=== PATIENT | male | born 1945 ===

== ENCOUNTER 2016-07-13 16:27 | Emergency (ER) | payer MEDICARE, OTHER ==
[2016-07-13 17:24] VITALS: BMI 18.6
[2016-07-13] MEDS ORDERED: Sodium Chloride 0.9% 1,000 ML IV ONE (19:35)
[2016-07-13] MEDS ORDERED: Sodium Chloride 0.9% 1,000 ML ONE (20:13)
--- NOTE | 2016-07-13 20:22 | C.PDOC ---
History Of Present Illness 71 y/o male presents to ED with complaint of left flank pain for the last week. Patient reports current pain feels like prior kidney stones 20 years ago. Denies fever, chills, nausea, vomiting, or urinary symptoms. Time Seen by Provider: 07/13/16 19:20 Chief Complaint (Nursing): Male Genitourinary History Per: Patient History/Exam Limitations: no limitations Onset/Duration Of Symptoms: Days Current Symptoms Are (Timing): Still Present Quality Of Discomfort: "Pain" Associated Symptoms: denies: Fever, Chills, Nausea, Vomiting, Diarrhea, Urinary Symptoms Recent travel outside of the [place]: No Past Medical History Reviewed: Historical Data, Nursing Documentation, Vital Signs Vital Signs: Last Vital Signs Temp 97.6 F 07/13/16 21:16 Pulse 58 L 07/13/16 21:16 Resp 18 07/13/16 21:16 BP 168/84 H 07/13/16 21:16 Pulse Ox 97 07/13/16 22:38 - Medical History PMH: HTN, Kidney Stones, Chronic Kidney Disease Family History: States: Unknown Family Hx - Social History Hx Alcohol Use: No Hx Substance Use: No - Immunization History Hx Tetanus Toxoid Vaccination: No Hx Influenza Vaccination: No Hx Pneumococcal Vaccination: No Review Of Systems Except As Marked, All Systems Reviewed And Found Negative. Constitutional: Negative for: Fever, Chills Cardiovascular: Negative for: Chest Pain Respiratory: Negative for: Cough Gastrointestinal: Positive for: Other (left flank pain ). Negative for: Nausea , Vomiting, Diarrhea Genitourinary: Negative for: Dysuria, Hematuria Skin: Negative for: Rash Neurological: Negative for: Dizziness Physical Exam - Physical Exam Appears: Non-toxic, No Acute Distress Skin: Warm, Dry Head: Atraumatic, Normacephalic Oral Mucosa: Moist Chest: Symmetrical Cardiovascular: Rhythm Regular, No Murmur Respiratory: Normal Breath Sounds, No Rales, No Rhonchi, No Wheezing Gastrointestinal/Abdominal: Soft, No Tenderness, No Guarding, No Rebound Back: Normal Inspection, No CVA Tenderness Extremity: Normal ROM, Capillary Refill (< 2 sec. ) Neurological/Psych: Oriented x3, Normal Speech, Normal Cognition ED Course And Treatment - Laboratory Results Result Diagrams: 07/13/16 20:25 07/13/16 20:25 Lab Interpretation: Abnormal (UA 10 WBC's, 37 RBC's) ECG: Interpreted By Me ECG Rhythm: Sinus Rhythm ECG Interpretation: Normal Rate From EC O2 Sat by Pulse Oximetry: 97 (RA) Pulse Ox Interpretation: Normal - Radiology CXR: Interpreted by Me CXR Interpretation: Yes: No Acute Disease - CT Scan/US CT abdomen/pelvis Other Rad Studies (CT/US): Read By Radiologist, Radiology Report Reviewed CT/US Interpretation: IMPRESSION: - Mild bladder wall thickening. This is a nonspecific finding, but can be seen with cystitis. Recommend clinical correlation. - Otherwise, no evidence of significant acute process on this unenhanced exam. There is no evidence. of obstructive nephroureterolithiasis. - Incidental indeterminate 1.4 cm left pulmonary nodule and multiple indeterminate hyperdense left. renal lesions. Further workup is recommended. Progress Note: Treated with Toradol and IVFs. EKG, CxR, CT a/p, and bloodwork ordered. Reevaluation Time: 22:58 Reassessment Condition: Improved Medical Decision Making Medical Decision Making: no ureteral stones ? L lower thorax small mass- requires further eval. L renal masses- multiple f/u with PMD and Nephrology Disposition Doctor Will See Patient In The: Office Counseled Patient/Family Regarding: Studies Performed, Diagnosis - Disposition Disposition: HOME/ ROUTINE Disposition Time: 22:59 Condition: GOOD - Clinical Impression Clinical Impression: Flank pain, Renal mass, left, Lung nodule - Scribe Statement The provider has reviewed the documentation as recorded by the Ted Timmons Provider Scribe Attestation: All medical record entries made by the Ted were at my direction and personally dictated by me. I have reviewed the chart and agree that the record accurately reflects my personal performance of the history, physical exam, medical decision making, and the department course for this patient. I have also personally directed, reviewed, and agree with the discharge instructions and disposition.
[2016-07-13 20:33] LABS: BASO % 0.9 % (0.0-2.0); EOS # 0.3 K/uL (0.0-0.7); EOS % 5.6 % (0.0-4.0); HEMATOCRIT 41.8 % (35.0-51.0); LYMPH # 1.2 K/uL (1.0-4.3); LYMPH % 20.9 % (20.0-40.0); MEAN CELL VOLUME 100.9 fL (80.0-94.0); MEAN CORPUSCULAR HEMOGLOBIN 33.7 pg (27.0-31.0); MEAN CORPUSCULAR HGB CONC 33.4 g/dL (33.0-37.0); MONO # 0.5 K/uL (0.0-0.8); MONO % 8.9 % (0.0-10.0); NRBC % 0.1 % (0.0-2.0); RED CELL DISTRIBUTION WIDTH 13.2 % (11.5-14.5); WHITE BLOOD COUNT 5.6 K/uL (4.8-10.8)
[2016-07-13 20:37] LABS: CHLORIDE 96 mmol/L (98-107); SODIUM 134 mmol/L (132-148)
[2016-07-13 20:38] LABS: POTASSIUM 4.1 mmol/L (3.6-5.2)
[2016-07-13 20:40] LABS: ALB/GLOB RATIO 1.2 (1.0-2.1); ALKALINE PHOSPHATASE 67 U/L (38-126); ALT/SGPT 28 U/L (21-72); AST/SGOT 33 U/L (17-59); BILIRUBIN,TOTAL 0.9 mg/dL (0.2-1.3); BLOOD UREA NITROGEN 19 mg/dL (9-20); CARBON DIOXIDE 28 mmol/L (22-30); GFR AFRICAN-AMERICAN > 60; GLUCOSE,RANDOM 91 mg/dL (75-110); TOTAL PROTEIN 7.4 g/dL (6.3-8.3)
[2016-07-13 20:45] LABS: RBC URINE 37 /hpf (0-3); URINE BACTERIA RARE (<OCC); URINE BILIRUBIN NEGATIVE (NEGATIVE); URINE BLOOD 2+ (NEGATIVE); URINE COLOR Yellow (YELLOW); URINE GLUCOSE (UA) NORMAL (Normal); URINE KETONE TRACE mg/dL (NEGATIVE); URINE LEUKOCYTE ESTERASE TRACE Leu/uL (Negative); URINE PROTEIN NEGATIVE (NEGATIVE); URINE UROBILINOGEN NORMAL mg/dL (0.2-1.0); WBC URINE 10 /hpf (0-5)
[2016-07-13 20:46] LABS: INR 1.1
[2016-07-13 21:17] VITALS: TEMP 97.6
--- NOTE | 2016-07-13 22:35 | CT ---
EXAM: CT Abdomen and Pelvis Without Intravenous Contrast CLINICAL HISTORY: 71 years old, male; Pain; Abdominal pain; Localized; Left; Additional info: L flank, h/o renal colic TECHNIQUE: Axial computed tomography images of the abdomen and pelvis without intravenous contrast. This CT exam was performed using one or more of the following dose reduction techniques: automated exposure control, adjustment of the mA and/or kV according to patient size, and/or use of iterative reconstruction technique. Coronal and sagittal reformatted images were created and reviewed. EXAM DATE/TIME: 07/13/2016 7:34 PM COMPARISON: No relevant prior studies available. FINDINGS: LOWER THORAX: Incidentally noted in the left lung base is a 1.4 cm noncalcified nodule, with mildly irregular margins. This is indeterminate in nature. There is no evidence of diffuse pulmonary nodules. ABDOMEN: LIVER: No acute abnormality of the liver identified. GALLBLADDER AND BILE DUCTS: No CT evidence of acute cholecystitis. No evidence of significant biliary ductal dilatation. PANCREAS: No CT evidence of acute pancreatitis. SPLEEN: No acute abnormality of the spleen identified. ADRENALS: No acute abnormality of the adrenal glands identified. KIDNEYS AND URETERS: Multiple hyperdense lesions in the left kidney. At least 4 are seen, the largest of which measures 3.2 cm. These could represent hyperdense cysts, but cannot entirely rule out solid left renal lesions. Recommend further evaluation with renal ultrasound or renal protocol CT or MRI, not necessarily on an emergent basis. Low density probable cyst in the right kidney. Nonobstructing right renal stone. No evidence of hydroureteronephrosis. No evidence of perinephric hemorrhage. STOMACH AND BOWEL: No acute abnormality of the stomach or duodenum identified. No evidence of small bowel obstruction. No acute abnormality of the colon identified. APPENDIX: Appendix is seen, and is within normal limits in appearance. PELVIS: BLADDER: Mild thickening of the bladder wall. REPRODUCTIVE: No acute abnormality of the reproductive organs is seen. ABDOMEN and PELVIS: INTRAPERITONEAL SPACE: No evidence of free intraperitoneal air or fluid. BONES/JOINTS: Bony structures appear demineralized. No acute fractures or other acute bony abnormality noted. SOFT TISSUES: No acute abnormality of the visualized soft tissues is seen. VASCULATURE: No evidence of abdominal aortic aneurysm. No evidence of periaortic hemorrhage. LYMPH NODES: No evidence of diffuse lymphadenopathy. IMPRESSION: - Mild bladder wall thickening. This is a nonspecific finding, but can be seen with cystitis. Recommend clinical correlation. - Otherwise, no evidence of significant acute process on this unenhanced exam. There is no evidence of obstructive nephroureterolithiasis. - Incidental indeterminate 1.4 cm left pulmonary nodule and multiple indeterminate hyperdense left renal lesions. Further workup is recommended. - See above for remaining findings.
[2016-07-13 23:23] VITALS: BP 168/95; PULSE 72; RESP 20; O2SAT 99
--- NOTE | 2016-07-14 08:44 | RAD ---
PROCEDURE: CHEST RADIOGRAPH, 1 VIEW HISTORY: Abdominal pain COMPARISON: None available. FINDINGS: LUNGS: Biapical pleural thickening with upper lobe granulomatous changes. Diffuse increased interstitial lung markings which may represent underlying fibrotic changes versus interstitial infiltrate and or edema. More patchy consolidative increased markings at the left lung base which may represent infiltrate and or atelectasis. Additional milder patchy increased markings in the right hilar region extending to the medial right infrahilar region. Scattered nodular densities in both lungs. PLEURA: No pneumothorax or pleural fluid seen. CARDIOVASCULAR: Normal. OSSEOUS STRUCTURES: No significant abnormalities. VISUALIZED UPPER ABDOMEN: Normal. OTHER FINDINGS: None. IMPRESSION: Biapical pleural thickening with upper lobe granulomatous changes. Diffuse increased interstitial lung markings which may represent underlying fibrotic changes versus interstitial infiltrate and or edema. More patchy consolidative increased markings at the left lung base which may represent infiltrate and or atelectasis. Additional milder patchy increased markings in the right hilar region extending to the medial right infrahilar region. Scattered nodular densities in both lungs.
--- NOTE | 2016-07-14 10:22 | CARD ---
APPROVED REPORT EKG Measurement Heart [id number] <Conclusion> Sinus rhythm with premature atrial complexes Possible Left atrial enlargement Borderline ECG
== END 2016-07-13 23:23 | disposition home or self-care (01) ==
LOC: C.ER 16:27
DX: N28.89 Other specified disorders of kidney and ureter (principal); R91.1 Solitary pulmonary nodule; R10.9 Unspecified abdominal pain
CPT/HCPCS: 71010; 74176; 80053; 81001; 83690; 84484; 85025; 85610; 85730; 93005; 96361; 96374; 99284; J1885; J7040

== ENCOUNTER 2017-01-16 10:36 | Inpatient (IN) | payer MEDICARE, OTHER ==
[2017-01-16 10:41] VITALS: BMI 21.2
--- NOTE | 2017-01-16 10:47 | C.PDOC ---
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 PATIENT STATES HE AWOKE AT BASELINE, A&OX3, FUNCTIONAL AND SELF SUFFICIENT. PATIENT FOUND IN BED TO HAVE LEFT LATERAL GAZE. NOT COMMUNICATIVE, NO MOVEMENT. PT HAS A HX OF METASTATIC CA. PER EMS, NEW ONSET SUDDEN AMS X 1 HR. FROM NH, NOTED TO BE @ BASELINE Time Seen by Provider: 01/16/17 10:39 History Per: EMS History/Exam Limitations: clinical condition Past Medical History Reviewed: Historical Data, Nursing Documentation, Vital Signs Vital Signs: Last Vital Signs Temp 97.1 F L 01/17/17 23:50 Pulse 86 01/18/17 06:28 Resp 20 01/18/17 06:28 BP 126/63 01/18/17 06:28 Pulse Ox 100 01/18/17 06:28 - Medical History PMH: HTN, Kidney Stones, Chronic Kidney Disease Family History: States: No Known Family Hx - Social History Hx Alcohol Use: No Hx Substance Use: No - Immunization History Hx Tetanus Toxoid Vaccination: No Hx Influenza Vaccination: No Hx Pneumococcal Vaccination: No Review Of Systems Review Of Systems: ROS cannot be obtained secondary to pt's inabilty to answer questions. Physical Exam - Physical Exam Appears: Other (OPENS EYES TO NAME, POOR PAIN RESPONSE; NON-VERBAL. SEE NIH) Skin: Warm, Dry Head: Atraumatic Eye(s): bilateral: Normal Inspection Nose: Normal Oral Mucosa: Moist Chest: Symmetrical Cardiovascular: Rhythm Regular Respiratory: Normal Breath Sounds Gastrointestinal/Abdominal: Soft Extremity: No Deformity Extremity: Bilateral: Atraumatic Neurological/Psych: No Normal Speech, Other ((+) BABINSKIS B/L; +GAG REFLEX) Pain Response: Withdraws With Pain ED Course And Treatment - Laboratory Results Result Diagrams: 01/17/17 16:50 01/18/17 06:57 NIHSS Stroke Scale - Date/Time Evaluation Performed Date Performed: 01/16/17 Time Performed: 10:44 When Was NIHSS Performed: Code Stroke - How Severe is the Stroke Level of Consciousness: 2=Obtunded LOC to Questions: 2=Neither correct (UNABLE TO ASSESS NONCOMMUNICATIVE) LOC to commands: 2=Neither correct (UNABLE TO ASSESS NONCOMMUNICATIVE) Best Gaze: 2=Forced deviation Visual: 0=No visual loss (UNABLE TO ASSESS NONCOMMUNICATIVE) Facial: 2=Partial (lower face paralysis) Motor Arm - Left: 4=No movement Motor Arm - Right: 4=No movement Motor Leg - Left: 4=No movement Motor Leg - Right: 4=No movement Limb Ataxia: 2=Present both (UNABLE TO ASSESS NONCOMMUNICATIVE) Sensory: 0=Normal (UNABLE TO ASSESS NONCOMMUNICATIVE) Best Language: 3=Mute Dysarthia: 2=Severe, near unintelligible or worse Extinction & Inattention (Neglect): 0=Normal, no object (UNABLE TO ASSESS NONCOMMUNICATIVE) Score: 33 NIHSS Stroke Scale 2 - Date/Time Evaluation Performed Date Performed: 01/16/17 Time Performed: 10:44 When Was NIHSS Performed: Code Stroke Re-evaluation - How Severe is the Stroke Level of Consciousness: 2=Obtunded LOC to Questions: 2=Neither correct (UNABLE TO ASSESS NONCOMMUNICATIVE) LOC to commands: 2=Neither correct (UNABLE TO ASSESS NONCOMMUNICATIVE) Best Gaze: 2=Forced deviation Visual: 0=No visual loss (UNABLE TO ASSESS NONCOMMUNICATIVE) Facial: 2=Partial (lower face paralysis) Motor Arm - Left: 4=No movement Motor Arm - Right: 4=No movement Motor Leg - Left: 4=No movement Motor Leg - Right: 4=No movement Limb Ataxia: 2=Present both (UNABLE TO ASSESS NONCOMMUNICATIVE) Sensory: 0=Normal (UNABLE TO ASSESS NONCOMMUNICATIVE) Best Language: 3=Mute Dysarthia: 2=Severe, near unintelligible or worse Extinction & Inattention (Neglect): 0=Normal, no object (UNABLE TO ASSESS NONCOMMUNICATIVE) Score: 33 Progress - Re-Evaluation Re-evaluation Note: 01/16/17 10:58 D/W REYES THOMAS DAUGHTER, 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 HO STROKE 08/2016. SP L NEPHRECTOMY 09/2016 @ [facility] [place] MASS = BENIGN. NEW PAIN R SIDE ,DX NEW MASS IN BONE. +LYMPH METS. SP RADIATION TX BUT DC DUE TO P.E. CURRENTLY ON CHEMO Q 3 WEEKS STARTED ON 01/07. PT ON ANTICOAG. 01/16/17 11:05 D/W DR JARRELL +L MCA 01/16/17 11:10 D/W DR QUINONEZ AWARE OF ER FINDINGS. CONCERN FOR POSSIBLE BRAIN METS. NO CT EVIDENCE OF BRAIN METS. STATES PT IS NOT A TPA CANDIDATE D/W DR Ellyn SEBASTIAN @ [facility] AWARE OF ER FINDINGS. PT NOT AN ENDOVASC CANDIDATE. SUPPORTIVE MGMT. 01/16/17 11:52 EXAM UNCH FROM INITIAL. DAUGHTER @ BEDSIDE. PMD = DR SY, HEME ONC @ [facility] [place] 01/16/17 12:[address] ZARATE WILL ADMIT - Data Reviewed Data Reviewed: Lab, Diagnostic imaging, EKG, Old records - Critical Care Citical Care: Excluding Proc Time Critical Care Time: 105 minutes - Continuity of Care Discussed patient case with:: Family-HIPPA compliant, Covering for PMD rTPA Inclusion/Exclusion - Refusal of Treatment Patient Refused Treatment: No - Inclusion Criteria for Altepase Patient is 18 years or Older: Yes The Clinical Diagnosis of Ischemic Stroke That is Causing a Potentially Disabling Neurological Deficit: Yes Time of Onset is Well Established to be Less Than 270 Minute Before Treatment Would Begin: Yes Risk/Benefit Discussed With Patient/Family Member Present: No - Exclusion Criteria for Altepase Uncontrolled Hypertension at Time of Treatment (Systolic BP above 185 or Diastolic BP above 110 mmHg): No Active Internal Bleeding: No Known Bleeding Diathesis Including but Not Limited to: Platelets Below 100,000/ mm,PTT Above 40 sec After Heparin Use, Current Use of Oral Anitcoagulant With INR Greater Than 1.7 or PT Greater Than 15 secs: No Evidence of an Intracranial Hemorrhage: No Evidence of Major Acute Infarct With Signs Greater Than 1/3 MCA Territory: Yes Suspicion of Subarachnoid Hemorrhage on Pretreatment Evaluation Even if CT Head Negative For Hemorrhage: No - Warning to TPA With Conditions Following Conditions Weighed Against Anticipated Benefit: Yes Condition: Increase Risk of Bleed Due to Comorbid Condition, Stroke Severity Too Severe (NIHSS greater than 22), Care Team Unable to Determine Eligibilty Additional Condition (For 3-4.5 Hour Window): NIHSS Above 25 Disposition Counseled Patient/Family Regarding: Studies Performed, Diagnosis - Disposition Disposition: HOSPITALIZED Disposition Time: 12:30 Condition: SERIOUS - POA Present On Arrival: Poor Glycemic Control - Clinical Impression Clinical Impression: CVA (cerebral vascular accident), Metastatic cancer - Scribe Statement The provider has reviewed the documentation as recorded by the Scribe (Marlen Skinner) All medical record entries made by the Scribe were at my direction and personally dictated by me. I have reviewed the chart and agree that the record accurately reflects my personal performance of the history, physical exam, medical decision making, and the department course for this patient. I have also personally directed, reviewed, and agree with the discharge instructions and disposition. Decision To Admit - Pt Status Changed To: Hospital Disposition Of: Inpatient - Admit Certification Admit to Inpatient:: After my assessment, the patient will require hospitalization for at least two midnights. This is because of the severity of symptoms shown, intensity of services needed, and/or the medical risk in this patient being treated as an outpatient. - InPatient: Physician Admission Certification: I certify that this patient requires 2 or more midnights of care for the following reason:: SEE NOTE - . Bed Request Type: Telemetry Admitting Physician: Martin Ramirez Patient Diagnosis: CVA (cerebral vascular accident), Metastatic cancer
--- NOTE | 2017-01-16 11:15 | CT ---
PROCEDURE: CT HEAD WITHOUT CONTRAST. HISTORY: code stroke COMPARISON: None available. TECHNIQUE: Axial computed tomography images were obtained through the head/brain without intravenous contrast. Radiation dose: Total exam DLP = 872.47 mGy-cm. This CT exam was performed using one or more of the following dose reduction techniques: Automated exposure control, adjustment of the mA and/or kV according to patient size, and/or use of iterative reconstruction technique. FINDINGS: HEMORRHAGE: No intracranial hemorrhage. BRAIN: There is asymmetric low attenuation in the left caudate head, anterior limb of internal capsule, basal ganglia and insular cortex, superior parietal as well as posterior temporal lobes. There are mild chronic microangiopathic changes. There are old lacunar infarctions in the right parietal lobe. There is no mass, mass effect or abnormal extra-axial fluid collection. VENTRICLES: There is mild age-related global parenchymal volume loss and proportionate enlargement of the ventricles and cortical sulci. CALVARIUM: The skull base and calvarium are normal. PARANASAL SINUSES: Predominantly clear. MASTOID AIR CELLS: Predominantly clear. OTHER FINDINGS: None. IMPRESSION: Acute large left MCA territory infarction involving the left caudate head, anterior limb of internal capsule, basal ganglia, insular cortex, posterior temporal lobe and superior parietal lobes. Mild chronic microangiopathic changes and mild age-related global parenchymal volume loss. Critical findings were discussed with ER attending Dr Racheal Whitney on 01/16/2017 at 11:05 a.m.
[2017-01-16 11:26] LABS: BASO # 0.1 K/uL (0.0-0.2); BASO % 0.6 % (0.0-2.0); EOS % 0.1 % (0.0-4.0); HEMATOCRIT 26.3 % (35.0-51.0); LYMPH # 0.3 K/uL (1.0-4.3); LYMPH % 2.2 % (20.0-40.0); MEAN CELL VOLUME 87.4 fL (80.0-94.0); MEAN CORPUSCULAR HEMOGLOBIN 28.4 pg (27.0-31.0); MEAN CORPUSCULAR HGB CONC 32.5 g/dL (33.0-37.0); MONO # 0.6 K/uL (0.0-0.8); MONO % 4.3 % (0.0-10.0); PLATELET COUNT 202 K/uL (130-400); RED CELL DISTRIBUTION WIDTH 18.4 % (11.5-14.5)
[2017-01-16 11:38] LABS: CHLORIDE 95 mmol/L (98-107); POTASSIUM 4.2 mmol/L (3.6-5.2); SODIUM 130 mmol/L (132-148)
[2017-01-16 11:39] LABS: INR 2.2
[2017-01-16 11:40] LABS: CARBON DIOXIDE 25 mmol/L (22-30); CHOLESTEROL 102 mg/dL (0-199); GFR AFRICAN-AMERICAN > 60
[2017-01-16 11:41] LABS: ALB/GLOB RATIO 0.7 (1.0-2.1); ALKALINE PHOSPHATASE 212 U/L (38-126); ALT/SGPT 84 U/L (21-72); AST/SGOT 39 U/L (17-59); BILIRUBIN,TOTAL 0.8 mg/dL (0.2-1.3); BLOOD UREA NITROGEN 23 mg/dL (9-20); CALCIUM 8.4 mg/dl (8.6-10.4); GLUCOSE,RANDOM 122 mg/dL (75-110); TOTAL PROTEIN 7.2 g/dL (6.3-8.3)
[2017-01-16] MEDS ORDERED: Sodium Chloride 0.9% 1,000 ML IV ONE (11:47)
[2017-01-16] MEDS ORDERED: Sodium Chloride 0.9% 500 ML IV ONE (11:47)
[2017-01-16 12:11] LABS: RBC URINE 22 /hpf (0-3); URINE BILIRUBIN NEGATIVE (NEGATIVE); URINE BLOOD 1+ (NEGATIVE); URINE COLOR Yellow (YELLOW); URINE GLUCOSE (UA) NORMAL (Normal); URINE KETONE NEGATIVE (NEGATIVE); URINE LEUKOCYTE ESTERASE NEG Leu/uL (Negative); URINE PROTEIN NEGATIVE (NEGATIVE); URINE UROBILINOGEN NORMAL mg/dL (0.2-1.0); WBC URINE 4 /hpf (0-5)
[2017-01-16 12:15] LABS: MYELOCYTE 2 % (0-0); NEUTROPHIL 93 % (50-75); TOTAL CELLS COUNTED 100
[2017-01-16 12:44] LABS: VENOUS BLOOD GAS PCO2 53 mmHg (40-60); VENOUS BLOOD PH 7.33 (7.32-7.43)
[2017-01-16] MEDS ORDERED: Docusate-Senna 50 mg-8.6 mg Tab PO SCH (14:30)
[2017-01-16] MEDS ORDERED: Home Med 1 UNIT (Fentanyl [Fentanyl] 1 EACH) TD SCH (14:30)
--- NOTE | 2017-01-16 15:31 | CP.PCM.HP ---
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 Patient is unable to give any hx. Patient is accompanied by daughter at bedside. She reports that was in his usual state of health until this morning. She was told that [facility] aides found him "unresponsive" this morning with left lateral gaze. He was brought to [facility] ER with concern for massive stroke. ROS unable to be obtained. He is seeing oncologist Casey Beckford. Last chemo 2 weeks ago. Last radiation tx 3 weeks ago. Patient has been in and out of [facility]. Last PET scan from July shows lesion on left kidney suspicious for malignancy along with lesions in lung and bone suspicious for mets. PMH: kidney tumor, stage IV cancer PSH: excision of kidney tumor, wrist sx FH: non contributory Allergies: NKDA Social hx: Former smoker. Former alcoholic. Past hx of marijuana use. Lives in [facility]. Originally from [facility] [place]. Present on Admission - Present on Admission Any Indicators Present on Admission: Yes History of DVT/PE: Yes History of Uncontrolled Diabetes: No Urinary Catheter: Yes Decubitus Ulcer Present: No Review of Systems - Review of Systems Systems not reviewed;Unavailable: Altered Mental Status Past Patient History - Infectious Disease Hx of Infectious Diseases: None - Tetanus Immunizations Tetanus Immunization: Unknown - Past Medical History & Family History Past Medical History?: Yes Past Family History: Reviewed and not pertinent - Past Social History Smoking Status: Former Smoker Chewing Tobacco Use: No Cigar Use: No Alcohol: None Drugs: Cannabis Home Situation {Lives}: Care Home - CARDIAC Hx Hypertension: Yes - PULMONARY Hx Pneumonia: Yes - NEUROLOGICAL Hx Transient Ischemic Attacks (TIA): Yes Other/Comment: Hx of generalized weakness - HEENT Hx Glaucoma: Yes - RENAL Hx Chronic Kidney Disease: Yes Hx Kidney Stones: Yes - HEMATOLOGICAL/ONCOLOGICAL Hx Cancer: Yes Hx Chemotherapy: Yes - MUSCULOSKELETAL/RHEUMATOLOGICAL Hx Falls: No - PSYCHIATRIC Hx Substance Use: No - SURGICAL HISTORY Hx Surgeries: Yes Other/Comment: hx of renal surgery due to CA. wrist sx on left side - ANESTHESIA Hx Anesthesia: Yes Hx Anesthesia Reactions: No Hx Malignant Hyperthermia: No Has any member of the family had a problem w/ anesthesia?: No Meds Allergies/Adverse Reactions: Allergies Allergy/AdvReac Type Severity Reaction Status Date / Time No Known Allergies Allergy Verified 01/16/17 10:49 Physical Exam - Constitutional Appears: Cachectic, Chronically Ill Additional comments: obtunded - Head Exam Head Exam: ATRAUMATIC, NORMAL INSPECTION, NORMOCEPHALIC - Eye Exam Eye Exam: absent: EOMI Additional comments: left lateral gaze preference - ENT Exam ENT Exam: Mucous Membranes Moist - Neck Exam Neck exam: Positive for: Full Rom, Normal Inspection - Respiratory Exam Respiratory Exam: NORMAL BREATHING PATTERN. absent: Respiratory Distress - GI/Abdominal Exam GI & Abdominal Exam: Normal Bowel Sounds, Soft. absent: Tenderness - Exam Exam: absent: NORMAL INSPECTION Additional comments: sahu in place - Neurological Exam Neurological exam: Altered Additional comments: unable to cooperate for neuro exam - Psychiatric Exam Additional comments: unable to assess - Skin Skin Exam: Dry, Intact, Normal Color, Warm Results - Vital Signs Recent Vital Signs: Last Vital Signs Temp 96.7 F L 01/16/17 14:59 Pulse 86 01/16/17 14:59 Resp 20 01/16/17 14:59 BP 119/71 01/16/17 14:59 Pulse Ox 100 01/16/17 14:59 - Labs Result Diagrams: 01/16/17 11:21 01/16/17 11:21 Labs: Laboratory Results - last 24 hr 01/16/17 01/16/17 01/16/17 10:42 11:21 11:21 WBC 13.0 H D RBC 3.01 L Hgb 8.5 L D Hct 26.3 L MCV 87.4 D MCH 28.4 MCHC 32.5 L RDW 18.4 H Plt Count 202 MPV 7.0 L Neut % (Auto) 92.8 H Lymph % (Auto) 2.2 L [place] % (Auto) 4.3 Eos % (Auto) 0.1 Baso % (Auto) 0.6 Neut # 12.1 H Lymph # 0.3 L Haskell # 0.6 Eos # 0.0 Baso # 0.1 Neutrophils % (Manual) 93 H Band Neutrophils % 1 Lymphocytes % (Manual) 1 L Monocytes % (Manual) 3 Myelocytes % 2 H Platelet Estimate Normal Anisocytosis (manual) Slight PT 25.8 H INR 2.2 APTT 29 pO2 VBG pH VBG pCO2 VBG HCO3 VBG Total CO2 VBG O2 Sat (Calc) VBG Base Excess VBG Potassium Glucose Lactate Sodium Potassium Chloride Carbon Dioxide Anion Gap BUN Creatinine Est GFR ( Amer) Est GFR (Non-Af Amer) POC Glucose (mg/dL) 134 H Random Glucose Calcium Total Bilirubin AST ALT Alkaline Phosphatase Total Creatine Kinase CK-MB (Mass) Troponin I, Quant Total Protein Albumin Globulin Albumin/Globulin Ratio Triglycerides Cholesterol LDL Cholesterol Direct HDL Cholesterol Venous Blood Potassium Urine Color Urine Clarity Urine pH Ur Specific [place] Urine Protein Urine Glucose (UA) Urine Ketones Urine Blood Urine Nitrate Urine Bilirubin Urine Urobilinogen Ur Leukocyte Esterase Urine WBC (Auto) Urine RBC (Auto) Blood Type Blood Type Confirm Antibody Screen 01/16/17 01/16/17 01/16/17 11:21 11:21 11:58 WBC RBC Hgb Hct MCV MCH MCHC RDW Plt Count MPV Neut % (Auto) Lymph % (Auto) [place] % (Auto) Eos % (Auto) Baso % (Auto) Neut # Lymph # [place] # Eos # Baso # Neutrophils % (Manual) Band Neutrophils % Lymphocytes % (Manual) Monocytes % (Manual) Myelocytes % Platelet Estimate Anisocytosis (manual) PT INR APTT pO2 VBG pH VBG pCO2 VBG HCO3 VBG Total CO2 VBG O2 Sat (Calc) VBG Base Excess VBG Potassium Glucose Lactate Sodium 130 L Potassium 4.2 Chloride 95 L Carbon Dioxide 25 Anion Gap 14 BUN 23 H Creatinine 0.9 Est GFR ( Amer) > 60 Est GFR (Non-Af Amer) > 60 POC Glucose (mg/dL) Random Glucose 122 H Calcium 8.4 L Total Bilirubin 0.8 AST 39 ALT 84 H D Alkaline Phosphatase 212 H Total Creatine Kinase < 20 L CK-MB (Mass) 0.30 Troponin I, Quant 0.0630 Total Protein 7.2 Albumin 2.9 L D Globulin 4.3 H Albumin/Globulin Ratio 0.7 L Triglycerides 85 Cholesterol 102 LDL Cholesterol Direct 63 HDL Cholesterol 23 L Venous Blood Potassium Urine Color Yellow Urine Clarity Clear Urine pH 7.0 Ur Specific [place] 1.011 Urine Protein Negative Urine Glucose (UA) Normal Urine Ketones Negative Urine Blood 1+ H Urine Nitrate Negative Urine Bilirubin Negative Urine Urobilinogen Normal Ur Leukocyte Esterase Neg Urine WBC (Auto) 4 Urine RBC (Auto) 22 H Blood Type A POSITIVE Blood Type Confirm A POSITIVE Antibody Screen Negative 01/16/17 12:40 WBC RBC Hgb Hct MCV MCH MCHC RDW Plt Count MPV Neut % (Auto) Lymph % (Auto) [place] % (Auto) Eos % (Auto) Baso % (Auto) Neut # Lymph # [place] # Eos # Baso # Neutrophils % (Manual) Band Neutrophils % Lymphocytes % (Manual) Monocytes % (Manual) Myelocytes % Platelet Estimate Anisocytosis (manual) PT INR APTT pO2 23 L VBG pH 7.33 VBG pCO2 53 VBG HCO3 24.0 VBG Total CO2 29.5 H VBG O2 Sat (Calc) 36.1 L VBG Base Excess 1.0 VBG Potassium 4.7 Glucose 125 H Lactate 1.7 Sodium 134.0 Potassium Chloride 103.0 Carbon Dioxide Anion Gap BUN Creatinine Est GFR ( Amer) Est GFR (Non-Af Amer) POC Glucose (mg/dL) Random Glucose Calcium Total Bilirubin AST ALT Alkaline Phosphatase Total Creatine Kinase CK-MB (Mass) Troponin I, Quant Total Protein Albumin Globulin Albumin/Globulin Ratio Triglycerides Cholesterol LDL Cholesterol Direct HDL Cholesterol Venous Blood Potassium 4.7 Urine Color Urine Clarity Urine pH Ur Specific [place] Urine Protein Urine Glucose (UA) Urine Ketones Urine Blood Urine Nitrate Urine Bilirubin Urine Urobilinogen Ur Leukocyte Esterase Urine WBC (Auto) Urine RBC (Auto) Blood Type Blood Type Confirm Antibody Screen Assessment & Plan - Assessment and Plan (Free Text) Assessment: This is a 71 yo male with past medical hx of stage IV cancer with mets to lung and bone, alcoholism presenting with 1. Acute CVA -PT IS FULL CODE -head ct shows acute large left MCA territory infarction (please see full report ) -will insert NG tube -will start asa 81 mg daily -lipid panel pending -pt is not a candidate for TPA per Dr. Vallejo -pt is not a candidate for endovascular intervention -neuro consult. Dr. Vallejo. recs appreciated. -monitor pt on tele unit -HGB a1C pending -EKG pending -PT and OT evaluation -we will maintain adequate hydration with NS 100 cc/hr 2. hx of cancer -continue to monitor -recent PET scan July 2016 s/p nephrectomy -will try to obtain records from [facility] [place]. 3. 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 -continue fludrocortisone daily 5. hx of BPH -continue flomax. 6. hematuria -UA shows 1 plus blood and 22 RBCs -continue to monitor 7. Elevated alk phos -will order GGT 8. Elevated ALT -more sensitive marker for liver injury -possible mets to liver? -continue to monitor 9. Normocytic anemia -will obtain baseline HGB -HGB 8.5 10. GI/DVT ppx -protonix daily -SCDs discussed with Dr. Ramirez <Martin Ramirez - Last Filed: 01/16/17 17:13> Results - Vital Signs Recent Vital Signs: Last Vital Signs Temp 96.7 F L 01/16/17 14:59 Pulse 86 01/16/17 14:59 Resp 20 01/16/17 14:59 BP 119/71 01/16/17 14:59 Pulse Ox 100 01/16/17 14:59 - Labs Result Diagrams: 01/16/17 11:21 01/16/17 11:21 Labs: Laboratory Results - last 24 hr 01/16/17 01/16/17 01/16/17 10:42 11:21 11:21 WBC 13.0 H D RBC 3.01 L Hgb 8.5 L D Hct 26.3 L MCV 87.4 D MCH 28.4 MCHC 32.5 L RDW 18.4 H Plt Count 202 MPV 7.0 L Neut % (Auto) 92.8 H Lymph % (Auto) 2.2 L [place] % (Auto) 4.3 Eos % (Auto) 0.1 Baso % (Auto) 0.6 Neut # 12.1 H Lymph # 0.3 L [place] # 0.6 Eos # 0.0 Baso # 0.1 Neutrophils % (Manual) 93 H Band Neutrophils % 1 Lymphocytes % (Manual) 1 L Monocytes % (Manual) 3 Myelocytes % 2 H Platelet Estimate Normal Anisocytosis (manual) Slight PT 25.8 H INR 2.2 APTT 29 pO2 VBG pH VBG pCO2 VBG HCO3 VBG Total CO2 VBG O2 Sat (Calc) VBG Base Excess VBG Potassium Glucose Lactate Sodium Potassium Chloride Carbon Dioxide Anion Gap BUN Creatinine Est GFR ( Amer) Est GFR (Non-Af Amer) POC Glucose (mg/dL) 134 H Random Glucose Calcium Total Bilirubin GGT AST ALT Alkaline Phosphatase Total Creatine Kinase CK-MB (Mass) Troponin I, Quant Total Protein Albumin Globulin Albumin/Globulin Ratio Triglycerides Cholesterol LDL Cholesterol Direct HDL Cholesterol Venous Blood Potassium Urine Color Urine Clarity Urine pH Ur Specific [place] Urine Protein Urine Glucose (UA) Urine Ketones Urine Blood Urine Nitrate Urine Bilirubin Urine Urobilinogen Ur Leukocyte Esterase Urine WBC (Auto) Urine RBC (Auto) Blood Type Blood Type Confirm Antibody Screen 01/16/17 01/16/17 01/16/17 11:21 11:21 11:58 WBC RBC Hgb Hct MCV MCH MCHC RDW Plt Count MPV Neut % (Auto) Lymph % (Auto) [place] % (Auto) Eos % (Auto) Baso % (Auto) Neut # Lymph # [place] # Eos # Baso # Neutrophils % (Manual) Band Neutrophils % Lymphocytes % (Manual) Monocytes % (Manual) Myelocytes % Platelet Estimate Anisocytosis (manual) PT INR APTT pO2 VBG pH VBG pCO2 VBG HCO3 VBG Total CO2 VBG O2 Sat (Calc) VBG Base Excess VBG Potassium Glucose Lactate Sodium 130 L Potassium 4.2 Chloride 95 L Carbon Dioxide 25 Anion Gap 14 BUN 23 H Creatinine 0.9 Est GFR ( Amer) > 60 Est GFR (Non-Af Amer) > 60 POC Glucose (mg/dL) Random Glucose 122 H Calcium 8.4 L Total Bilirubin 0.8 GGT AST 39 ALT 84 H D Alkaline Phosphatase 212 H Total Creatine Kinase < 20 L CK-MB (Mass) 0.30 Troponin I, Quant 0.0630 Total Protein 7.2 Albumin 2.9 L D Globulin 4.3 H Albumin/Globulin Ratio 0.7 L Triglycerides 85 Cholesterol 102 LDL Cholesterol Direct 63 HDL Cholesterol 23 L Venous Blood Potassium Urine Color Yellow Urine Clarity Clear Urine pH 7.0 Ur Specific [place] 1.011 Urine Protein Negative Urine Glucose (UA) Normal Urine Ketones Negative Urine Blood 1+ H Urine Nitrate Negative Urine Bilirubin Negative Urine Urobilinogen Normal Ur Leukocyte Esterase Neg Urine WBC (Auto) 4 Urine RBC (Auto) 22 H Blood Type A POSITIVE Blood Type Confirm A POSITIVE Antibody Screen Negative 01/16/17 01/16/17 12:40 16:50 WBC RBC Hgb Hct MCV MCH MCHC RDW Plt Count MPV Neut % (Auto) Lymph % (Auto) [place] % (Auto) Eos % (Auto) Baso % (Auto) Neut # Lymph # [place] # Eos # Baso # Neutrophils % (Manual) Band Neutrophils % Lymphocytes % (Manual) Monocytes % (Manual) Myelocytes % Platelet Estimate Anisocytosis (manual) PT INR APTT pO2 23 L VBG pH 7.33 VBG pCO2 53 VBG HCO3 24.0 VBG Total CO2 29.5 H VBG O2 Sat (Calc) 36.1 L VBG Base Excess 1.0 VBG Potassium 4.7 Glucose 125 H Lactate 1.7 Sodium 134.0 Potassium Chloride 103.0 Carbon Dioxide Anion Gap BUN Creatinine Est GFR ( Amer) Est GFR (Non-Af Amer) POC Glucose (mg/dL) Random Glucose Calcium Total Bilirubin GGT 181 H AST ALT Alkaline Phosphatase Total Creatine Kinase CK-MB (Mass) Troponin I, Quant Total Protein Albumin Globulin Albumin/Globulin Ratio Triglycerides Cholesterol LDL Cholesterol Direct HDL Cholesterol Venous Blood Potassium 4.7 Urine Color Urine Clarity Urine pH Ur Specific [place] Urine Protein Urine Glucose (UA) Urine Ketones Urine Blood Urine Nitrate Urine Bilirubin Urine Urobilinogen Ur Leukocyte Esterase Urine WBC (Auto) Urine RBC (Auto) Blood Type Blood Type Confirm Antibody Screen Attending/Attestation - Attestation I have personally seen and examined this patient.: Yes I have fully participated in the care of the patient.: Yes I have reviewed all pertinent clinical information: Yes Notes (Text): Patient was seen and examined.Discussed with patient's daughter Martita and the son Cole.Discussed about his poor prognosis and the risk of cardiopulmonary arrest.Decision not made.Full code at this time.d/w his oncologist DR Shakeel Peña in detail.Cancer with mets ,unknown origin. Oncologist spoke to the family about palliative care in the past.He will call his family again.Patient's anemia is progressive and s/p transfusion as per Dr Beckford .We will transfuse if Hb goes down to 7 01/16/17 17:09
--- NOTE | 2017-01-16 16:23 | RAD ---
HISTORY: NGT COMPARISON: No prior. FINDINGS: The nasogastric tube terminates in the stomach. LUNGS: The lungs are hyperinflated and there is peribronchial thickening with chronic changes in both lungs. There is a left retrocardiac opacity. PLEURA: Small left pleural effusion. No significant right pleural effusion identified, no pneumothorax apparent. CARDIOVASCULAR: Normal. OSSEOUS STRUCTURES: No significant abnormalities. VISUALIZED UPPER ABDOMEN: Normal. OTHER FINDINGS: None. IMPRESSION: Nasogastric tube terminates in the stomach. Left lower lobe atelectasis/pneumonia and small left pleural effusion.
--- NOTE | 2017-01-16 21:16 | CP.PCM.CON ---
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 Patient is unable to give any hx. Patient is accompanied by daughter at bedside. She reports that was in his usual state of health until this morning. She was told that retirement aides found him "unresponsive" this morning with left lateral gaze. He was brought to [facility] ER with concern for massive stroke. ROS unable to be obtained. He is seeing oncologist Casey Beckford. Last chemo 2 weeks ago. Last radiation tx 3 weeks ago. Patient has been in and out of [facility]. Last PET scan from July shows lesion on left kidney suspicious for malignancy along with lesions in lung and bone suspicious for mets. PMH: kidney tumor, stage IV cancer PSH: excision of kidney tumor, wrist sx FH: non contributory Allergies: NKDA Social hx: Former smoker. Former alcoholic. Past hx of marijuana use. Lives in retirement. Originally from [facility]. IMPRESSION of CT Brain: Acute large left MCA territory infarction involving the left caudate head, anterior limb of internal capsule, basal ganglia, insular cortex, posterior temporal lobe and superior parietal lobes. Mild chronic microangiopathic changes and mild age-related global parenchymal volume loss. IMPRESSION of CXR: Nasogastric tube terminates in the stomach. Left lower lobe atelectasis/pneumonia and small left pleural effusion. Present on Admission - Present on Admission Any Indicators Present on Admission: Yes History of DVT/PE: Yes History of Uncontrolled Diabetes: No Urinary Catheter: Yes Decubitus Ulcer Present: No Review of Systems - Review of Systems Systems not reviewed;Unavailable: Altered Mental Status Past Patient History - Infectious Disease Hx of Infectious Diseases: None - Tetanus Immunizations Tetanus Immunization: Unknown - Past Medical History & Family History Past Medical History?: Yes Past Family History: Reviewed and not pertinent - Past Social History Smoking Status: Former Smoker Chewing Tobacco Use: No Cigar Use: No Alcohol: None Drugs: Cannabis Home Situation {Lives}: Assisted - CARDIAC Hx Hypertension: Yes - PULMONARY Hx Pneumonia: Yes - NEUROLOGICAL Hx Transient Ischemic Attacks (TIA): Yes Other/Comment: Hx of generalized weakness - HEENT Hx Glaucoma: Yes - RENAL Hx Chronic Kidney Disease: Yes Hx Kidney Stones: Yes - HEMATOLOGICAL/ONCOLOGICAL Hx Cancer: Yes Hx Chemotherapy: Yes - MUSCULOSKELETAL/RHEUMATOLOGICAL Hx Falls: No - PSYCHIATRIC Hx Substance Use: No - SURGICAL HISTORY Hx Surgeries: Yes Other/Comment: hx of renal surgery due to CA. wrist sx on left side - ANESTHESIA Hx Anesthesia: Yes Hx Anesthesia Reactions: No Hx Malignant Hyperthermia: No Has any member of the family had a problem w/ anesthesia?: No Meds Allergies/Adverse Reactions: Allergies Allergy/AdvReac Type Severity Reaction Status Date / Time No Known Allergies Allergy Verified 01/16/17 10:49 Physical Exam - Constitutional Appears: Cachectic, Chronically Ill Additional comments: obtunded - Head Exam Head Exam: ATRAUMATIC, NORMAL INSPECTION, NORMOCEPHALIC - Eye Exam Eye Exam: absent: EOMI Additional comments: left lateral gaze preference - ENT Exam ENT Exam: Mucous Membranes Moist - Neck Exam Neck exam: Positive for: Full Rom, Normal Inspection - Respiratory Exam Respiratory Exam: NORMAL BREATHING PATTERN. absent: Respiratory Distress - GI/Abdominal Exam GI & Abdominal Exam: Normal Bowel Sounds, Soft. absent: Tenderness - Exam Exam: absent: NORMAL INSPECTION Additional comments: sahu in place - Neurological Exam Neurological exam: Altered Additional comments: unable to cooperate for neuro exam - Psychiatric Exam Additional comments: unable to assess - Skin Skin Exam: Dry, Intact, Normal Color, Warm Results - Vital Signs Recent Vital Signs: Last Vital Signs Temp 96.7 F L 01/16/17 14:59 Pulse 86 01/16/17 14:59 Resp 20 01/16/17 14:59 BP 119/71 01/16/17 14:59 Pulse Ox 100 01/16/17 14:59 Assessment & Plan - Assessment and Plan (Free Text) Assessment: This is a 71 yo male with past medical hx of stage IV cancer with mets to lung and bone, alcoholism presenting with 1. Acute CVA -PT IS FULL CODE -head ct shows acute large left MCA territory infarction (please see full report ) -will insert NG tube -will start asa 81 mg daily -lipid panel pending -pt is not a candidate for TPA per Dr. Vallejo -pt is not a candidate for endovascular intervention -neuro consult. Dr. Vallejo. recs appreciated. -monitor pt on tele unit -HGB a1C pending -EKG pending -PT and OT evaluation -we will maintain adequate hydration with NS 100 cc/hr 2. hx of cancer -continue to monitor -recent PET scan July 2016 s/p nephrectomy -will try to obtain records from [facility] [place]. 3. 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 -continue fludrocortisone daily 5. hx of BPH -continue flomax. 6. hematuria -UA shows 1 plus blood and 22 RBCs -continue to monitor 7. Elevated alk phos -will order GGT 8. Elevated ALT -more sensitive marker for liver injury -possible mets to liver? -continue to monitor 9. Normocytic anemia -will obtain baseline HGB -HGB 8.5 10. GI/DVT ppx -protonix daily -SCDs Past Patient History - Infectious Disease Hx of Infectious Diseases: None - Tetanus Immunizations Tetanus Immunization: Unknown - Past Medical History & Family History Past Medical History?: Yes Past Family History: Reviewed and not pertinent - Past Social History Smoking Status: Former Smoker Chewing Tobacco Use: No Cigar Use: No Alcohol: None Drugs: Cannabis Home Situation {Lives}: Assisted - CARDIAC Hx Hypertension: Yes - PULMONARY Hx Pneumonia: Yes - NEUROLOGICAL Hx Transient Ischemic Attacks (TIA): Yes Other/Comment: Hx of generalized weakness - HEENT Hx Glaucoma: Yes - RENAL Hx Chronic Kidney Disease: Yes Hx Kidney Stones: Yes - HEMATOLOGICAL/ONCOLOGICAL Hx Cancer: Yes Hx Chemotherapy: Yes - MUSCULOSKELETAL/RHEUMATOLOGICAL Hx Falls: No - PSYCHIATRIC Hx Substance Use: No - SURGICAL HISTORY Hx Surgeries: Yes Other/Comment: hx of renal surgery due to CA. wrist sx on left side - ANESTHESIA Hx Anesthesia: Yes Hx Anesthesia Reactions: No Hx Malignant Hyperthermia: No Has any member of the family had a problem w/ anesthesia?: No Meds Allergies/Adverse Reactions: Allergies Allergy/AdvReac Type Severity Reaction Status Date / Time No Known Allergies Allergy Verified 01/16/17 10:49 - Medications Medications: Current Medications Aspirin (Aspirin Chewable) 81 mg PO DAILY [facility] Fludrocortisone Acetate (Florinef) 0.1 mg PO DAILY [facility] Gabapentin (Neurontin) 300 mg PO HS [facility] Sodium Chloride (Sodium Chloride 0.9%) 1,000 mls @ 100 mls/hr IV .Q10H ONE Stop: 01/16/17 21:46 Last Admin: 01/16/17 12:47 Dose: 100 mls/hr Pantoprazole Sodium (Protonix Inj) 40 mg IVP DAILY [facility] Senna/Docusate Sodium (Senokot S 50 Mg-8.6 Mg) 2 tab PO Q12H [facility] Tamsulosin HCl (Flomax) 0.4 mg PO DAILY [facility] Tobramycin Sulfate (Tobrex 0.3% Ophth Soln) 0 drop OU DAILY [facility] Physical Exam - Neurological Exam Additional comments: Cachectic Mental Status: Lethargic, non responsive, not doing well, no eye to eye contact, non verbal, mask like face Cranial Nerves II to XII: no eye movements are appreciated Left gaze preference, pupils are equal no facial asymmetry Central tongue, Motor: Increased tone Rigidity in the left LE, Left Knee DTR are 0/4 Toes are equivocal by plantar stimulation. spontaneous left upper and left lower extrmities are seen very minimal movements of left UE and Left LE Sensory: withdraws to pain Cerebellar: Unable to assess. Results - Vital Signs Recent Vital Signs: Last Vital Signs Temp 98.5 F 01/16/17 16:00 Pulse 99 H 01/16/17 16:00 Resp 20 01/16/17 16:00 BP 93/58 L 01/16/17 16:00 Pulse Ox 100 01/16/17 16:00 - Labs Result Diagrams: 01/16/17 11:21 01/16/17 11:21 Labs: Laboratory Results - last 24 hr 01/16/17 01/16/17 01/16/17 10:42 11:21 11:21 WBC 13.0 H D RBC 3.01 L Hgb 8.5 L D Hct 26.3 L MCV 87.4 D MCH 28.4 MCHC 32.5 L RDW 18.4 H Plt Count 202 MPV 7.0 L Neut % (Auto) 92.8 H Lymph % (Auto) 2.2 L Polk % (Auto) 4.3 Eos % (Auto) 0.1 Baso % (Auto) 0.6 Neut # 12.1 H Lymph # 0.3 L Polk # 0.6 Eos # 0.0 Baso # 0.1 Neutrophils % (Manual) 93 H Band Neutrophils % 1 Lymphocytes % (Manual) 1 L Monocytes % (Manual) 3 Myelocytes % 2 H Platelet Estimate Normal Anisocytosis (manual) Slight PT 25.8 H INR 2.2 APTT 29 pO2 VBG pH VBG pCO2 VBG HCO3 VBG Total CO2 VBG O2 Sat (Calc) VBG Base Excess VBG Potassium Glucose Lactate Sodium Potassium Chloride Carbon Dioxide Anion Gap BUN Creatinine Est GFR ( Amer) Est GFR (Non-Af Amer) POC Glucose (mg/dL) 134 H Random Glucose Calcium Total Bilirubin GGT AST ALT Alkaline Phosphatase Total Creatine Kinase CK-MB (Mass) Troponin I, Quant Total Protein Albumin Globulin Albumin/Globulin Ratio Triglycerides Cholesterol LDL Cholesterol Direct HDL Cholesterol Venous Blood Potassium Urine Color Urine Clarity Urine pH Ur Specific Amanda Urine Protein Urine Glucose (UA) Urine Ketones Urine Blood Urine Nitrate Urine Bilirubin Urine Urobilinogen Ur Leukocyte Esterase Urine WBC (Auto) Urine RBC (Auto) Blood Type Blood Type Confirm Antibody Screen 01/16/17 01/16/17 01/16/17 11:21 11:21 11:58 WBC RBC Hgb Hct MCV MCH MCHC RDW Plt Count MPV Neut % (Auto) Lymph % (Auto) Polk % (Auto) Eos % (Auto) Baso % (Auto) Neut # Lymph # Polk # Eos # Baso # Neutrophils % (Manual) Band Neutrophils % Lymphocytes % (Manual) Monocytes % (Manual) Myelocytes % Platelet Estimate Anisocytosis (manual) PT INR APTT pO2 VBG pH VBG pCO2 VBG HCO3 VBG Total CO2 VBG O2 Sat (Calc) VBG Base Excess VBG Potassium Glucose Lactate Sodium 130 L Potassium 4.2 Chloride 95 L Carbon Dioxide 25 Anion Gap 14 BUN 23 H Creatinine 0.9 Est GFR ( Amer) > 60 Est GFR (Non-Af Amer) > 60 POC Glucose (mg/dL) Random Glucose 122 H Calcium 8.4 L Total Bilirubin 0.8 GGT AST 39 ALT 84 H D Alkaline Phosphatase 212 H Total Creatine Kinase < 20 L CK-MB (Mass) 0.30 Troponin I, Quant 0.0630 Total Protein 7.2 Albumin 2.9 L D Globulin 4.3 H Albumin/Globulin Ratio 0.7 L Triglycerides 85 Cholesterol 102 LDL Cholesterol Direct 63 HDL Cholesterol 23 L Venous Blood Potassium Urine Color Yellow Urine Clarity Clear Urine pH 7.0 Ur Specific Amanda 1.011 Urine Protein Negative Urine Glucose (UA) Normal Urine Ketones Negative Urine Blood 1+ H Urine Nitrate Negative Urine Bilirubin Negative Urine Urobilinogen Normal Ur Leukocyte Esterase Neg Urine WBC (Auto) 4 Urine RBC (Auto) 22 H Blood Type A POSITIVE Blood Type Confirm A POSITIVE Antibody Screen Negative 01/16/17 01/16/17 12:40 16:50 WBC RBC Hgb Hct MCV MCH MCHC RDW Plt Count MPV Neut % (Auto) Lymph % (Auto) Polk % (Auto) Eos % (Auto) Baso % (Auto) Neut # Lymph # Polk # Eos # Baso # Neutrophils % (Manual) Band Neutrophils % Lymphocytes % (Manual) Monocytes % (Manual) Myelocytes % Platelet Estimate Anisocytosis (manual) PT INR APTT pO2 23 L VBG pH 7.33 VBG pCO2 53 VBG HCO3 24.0 VBG Total CO2 29.5 H VBG O2 Sat (Calc) 36.1 L VBG Base Excess 1.0 VBG Potassium 4.7 Glucose 125 H Lactate 1.7 Sodium 134.0 Potassium Chloride 103.0 Carbon Dioxide Anion Gap BUN Creatinine Est GFR ( Amer) Est GFR (Non-Af Amer) POC Glucose (mg/dL) Random Glucose Calcium Total Bilirubin GGT 181 H AST ALT Alkaline Phosphatase Total Creatine Kinase CK-MB (Mass) Troponin I, Quant Total Protein Albumin Globulin Albumin/Globulin Ratio Triglycerides Cholesterol LDL Cholesterol Direct HDL Cholesterol Venous Blood Potassium 4.7 Urine Color Urine Clarity Urine pH Ur Specific Amanda Urine Protein Urine Glucose (UA) Urine Ketones Urine Blood Urine Nitrate Urine Bilirubin Urine Urobilinogen Ur Leukocyte Esterase Urine WBC (Auto) Urine RBC (Auto) Blood Type Blood Type Confirm Antibody Screen Assessment & Plan (1) Pulmonary embolism Assessment and Plan: Suspected Status: Acute (2) CVA (cerebral vascular accident) Assessment and Plan: seen by MRI Brain Status: Acute (3) Metastatic cancer Assessment and Plan: old history Status: Acute (4) Flank pain Status: Acute (5) Renal mass, left Assessment and Plan: Treated in the Past Status: Acute (6) Left lower lobe pneumonia Assessment and Plan: with pleural effusion Status: Acute
[2017-01-17] MEDS ORDERED: Piperacillin/Tazobact 3.375 GM in Sodium Chloride 100 ML IVPB SCH (04:45)
[2017-01-17] MEDS: Piperacill/Tazo 2.25gm in Dex 2.25 GM/50 ML BAG IVPB SCH ×4 (05:20→23:12)
--- NOTE | 2017-01-17 05:33 | PCM.RRT ---
FAMILY PRACTICE MD Nurses Assessment - Situation Date: 01/17/17 Time FAMILY PRACTICE MD was called: 04:19 FAMILY PRACTICE MD Responder Arrival Time:: 04:21 FAMILY PRACTICE MD Location:: Med/Surg Room Number: 671B FAMILY PRACTICE MD Reason for Call: Respiratory Distress, O2 Saturation below 90% FAMILY PRACTICE MD Called By: RN - IV IV Inserted during FAMILY PRACTICE MD?: No - Respiratory FAMILY PRACTICE MD Delivery Method: Face Mask @% Oxygen Flow Rate: 100 Received Nebulizer Treatments: No Was the Patient Ventilated with Bag/Mask 100% O2?: No Secretions Suctioned?: No Was the Patient Intubated?: No Was the Patient Placed on a Ventilator?: No - Ventilator Settings FIO2 (% Oxygen): 100 - Medication Medications Administered During FAMILY PRACTICE MD: LASIX 20MG GIVEN AT 452 - Diagnostic Test Ordered EKG: No Chest X-Ray: Yes CT Scan: No CPR started during FAMILY PRACTICE MD?: No - Vital Signs Vital Signs: Rapid Response Vital Sign Blood Pressure 144/71 Pulse Rate 99 Respiratory Rate 20 Temperature 97.5 F Oxygen Saturation 83 - Recommendations Notifications: Attending Physician I.Reason for FAMILY PRACTICE MD - A) Acute Change in Patient: (Select all that apply): Acute change in SpO2 less (<80%) Subjective: An FAMILY PRACTICE MD was called on this patient for poor oxygen saturation. The rest of his vitals were stable (as listed above). A non-breather was put on which did not resolve his poor oxygen saturation. A BIPAP was then put on which improved his oxygen saturation to 100%. BIPAP setting were as follows: IPAP 10 EPAP 5 Rate 12 O2 100%. The patient's chart was reviewed and his lastest CXR was reviewed, which showed possible pneumonia and small pleural effusion. Zosyn 2.25g IVPB Q6H was started stat. Furosemide 20mg IVP one time dose was given stat. A CXR was ordered stat. The patient's daughter Martita was called at 4:45AM and she was informed of the patient's de-saturation. The code status was also discussed, and the daughter requested the patient be FULL CODE. I checked on the patient again at 5:30AM and patient was saturating at 100%. - Respiratory Oxygen Delivery Method: Face Mask @% Oxygen Flow Rate: 100 - Constitutional Appears: In Acute Distress - Head Head Exam: ATRAUMATIC, NORMAL INSPECTION - Eyes Eye Exam: EOMI - Respiratory Exam Respiratory Exam: Rales Additional comments: diffuse rales bibasal bilaterally - Cardiovascular Exam Cardiovascular Exam: REGULAR RHYTHM, +S1, +S2. absent: Bradycardia, Tachycardia , Murmur - GI/Abdominal Exam GI & Abdominal Exam: Soft, Normal Bowel Sounds - Neurological Exam Neurological Exam: Awake. absent: Alert, Oriented x3 - Extremities Exam Extremities Exam: Normal Capillary Refill
--- NOTE | 2017-01-17 05:43 | RAD ---
EXAM: XR Chest, 1 View CLINICAL HISTORY: 71 years old, male; Signs and symptoms; Shortness of breath; Additional info: Respiratory distress TECHNIQUE: Frontal view of the chest. COMPARISON: No relevant prior studies available. FINDINGS: Lungs: Increased opacity within retrocardiac region. Wedge-shaped opacity within RIGHT lung base. Pleural space: Small LEFT pleural effusion. No pneumothorax. Heart: No cardiomegaly. Mediastinum: Unremarkable. Bones/joints: No acute fracture. Tubes, lines and devices: NG tube courses below diaphragm. Upper abdomen: Surgical clips about upper abdomen. Other findings: Apparent skinfold overlying LEFT hemithorax. Leads overlying chest. IMPRESSION: 1. LEFT pleural effusion with LEFT basilar atelectasis and/or pneumonia. 2. RIGHT lower lobe collapse. 3. Incidental/non-acute findings are described above.
[2017-01-17] MEDS: Docusate-Senna 50 mg-8.6 mg Tab PO SCH ×2 (09:56→23:00)
[2017-01-17] MEDS: Tobramycin 0.3% OPHT SOLN OU SCH (09:56)
[2017-01-17 17:00] LABS: BASO % 0.2 % (0.0-2.0); EOS % 0.1 % (0.0-4.0); HEMATOCRIT 27.5 % (35.0-51.0); LYMPH # 0.3 K/uL (1.0-4.3); LYMPH % 1.6 % (20.0-40.0); MEAN CELL VOLUME 87.2 fL (80.0-94.0); MEAN CORPUSCULAR HEMOGLOBIN 27.9 pg (27.0-31.0); MEAN PLATELET VOLUME 7.3 fL (7.2-11.7); MONO # 0.7 K/uL (0.0-0.8); MONO % 3.6 % (0.0-10.0); PLATELET COUNT 213 K/uL (130-400); RED CELL DISTRIBUTION WIDTH 18.6 % (11.5-14.5)
[2017-01-17 17:11] LABS: CHLORIDE 96 mmol/L (98-107); POTASSIUM 3.7 mmol/L (3.6-5.2); SODIUM 132 mmol/L (132-148)
[2017-01-17 17:13] LABS: CARBON DIOXIDE 24 mmol/L (22-30); GFR AFRICAN-AMERICAN > 60
[2017-01-17 17:14] LABS: ALB/GLOB RATIO 0.7 (1.0-2.1); ALKALINE PHOSPHATASE 192 U/L (38-126); ALT/SGPT 73 U/L (21-72); AST/SGOT 33 U/L (17-59); BLOOD UREA NITROGEN 18 mg/dL (9-20); CALCIUM 8.5 mg/dl (8.6-10.4); GLUCOSE,RANDOM 125 mg/dL (75-110); MAGNESIUM 1.7 mg/dL (1.6-2.3); TOTAL PROTEIN 7.2 g/dL (6.3-8.3)
[2017-01-17 18:14] LABS: NEUTROPHIL 95 % (50-75); TOTAL CELLS COUNTED 100
--- NOTE | 2017-01-17 18:41 | CP.PCM.PN ---
<Jeremiah Melara - Last Filed: 01/17/17 18:42> Subjective - Date & Time of Evaluation Date of Evaluation: 01/17/17 Time of Evaluation: 18:30 - Subjective Subjective: Progress note. Attending: Dr. Ramirez Pt seen and examined at bedside. No acute distress. Rapid called overnight for desat. pt now on bipap, saturating well. No fevers, vomiting diarrhea. ROS unobtainable. Objective - Vital Signs/Intake and Output Vital Signs (last 24 hours): Temp Pulse Resp BP Pulse Ox 98 F 92 H 20 135/81 100 01/17/17 16:06 01/17/17 16:06 01/17/17 16:06 01/17/17 16:06 01/17/17 16:06 Intake and Output: 01/17/17 01/17/17 06:59 18:59 Intake Total 800 100 Output Total 1200 Balance -400 100 - Medications Medications: Current Medications Aspirin (Aspirin Chewable) 81 mg PO DAILY [facility] Last Admin: 01/17/17 09:55 Dose: 81 mg Fludrocortisone Acetate (Florinef) 0.1 mg PO DAILY [facility] Last Admin: 01/17/17 09:56 Dose: 0.1 mg Gabapentin (Neurontin) 300 mg PO HS [facility] Last Admin: 01/16/17 22:34 Dose: 300 mg Piperacillin Sod/Tazobactam Sod (Zosyn 2.25 Gm Iv Premix) 2.25 gm in 50 mls @ 200 mls/hr IVPB Q6H [facility] Last Admin: 01/17/17 17:55 Dose: 200 mls/hr Pantoprazole Sodium (Protonix Inj) 40 mg IVP DAILY [facility] Last Admin: 01/17/17 09:56 Dose: 40 mg Senna/Docusate Sodium (Senokot S 50 Mg-8.6 Mg) 2 tab PO Q12H [facility] Last Admin: 01/17/17 09:56 Dose: 2 tab Tamsulosin HCl (Flomax) 0.4 mg PO DAILY [facility] Last Admin: 01/17/17 09:56 Dose: 0.4 mg Tobramycin Sulfate (Tobrex 0.3% Ophth Soln) 0 drop OU DAILY [facility] Last Admin: 01/17/17 09:56 Dose: 1 drop - Labs Labs: 01/17/17 16:50 01/17/17 16:50 PT 25.8 SECONDS (9.7-12.2) H 01/16/17 11:21 INR 2.2 01/16/17 11:21 APTT 29 SECONDS (21-34) 01/16/17 11:21 - Constitutional Appears: Chronically Ill - Head Exam Head Exam: ATRAUMATIC, NORMAL INSPECTION, NORMOCEPHALIC - Eye Exam Eye Exam: absent: Normal appearance - ENT Exam ENT Exam: Mucous Membranes Moist - Neck Exam Neck Exam: Full ROM, Normal Inspection - Respiratory Exam Respiratory Exam: absent: Respiratory Distress - Cardiovascular Exam Cardiovascular Exam: +S1, +S2 - GI/Abdominal Exam GI & Abdominal Exam: Soft, Normal Bowel Sounds. absent: Tenderness - Extremities Exam Extremities Exam: Full ROM, Normal Inspection - Neurological Exam Neurological Exam: Altered. absent: Alert, Oriented x3 - Psychiatric Exam Additional comments: Unable to assess - Skin Skin Exam: Dry, Intact, Normal Color, Warm Assessment and Plan - Assessment and Plan (Free Text) Assessment: This is a 71 yo male with past medical hx of stage IV cancer with mets to lung and bone, alcoholism presenting with 1. Acute CVA -PT IS FULL CODE -head ct shows acute large left MCA territory infarction (please see full report ) -will insert NG tube -will start asa 81 mg daily -lipid panel pending -pt is not a candidate for TPA per Dr. Vallejo -pt is not a candidate for endovascular intervention -neuro consult. Dr. Vallejo. recs appreciated. -monitor pt on tele unit -HGB a1C pending -PT and OT evaluation -we will maintain adequate hydration with NS 100 cc/hr -a1c is 6.1 -CRP > 15. 1.5 Oxygen desaturation -bipap prn -continue to monitor 2. hx of cancer -continue to monitor -recent PET scan July 2016 s/p nephrectomy -will try to obtain records from [facility] [place]. 3. Hx of neuropathic pain -continue gabapentin 4. 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 orthostatic hypotension? -continue fludrocortisone daily 5. hx of BPH -continue flomax. 6. hematuria -UA shows 1 plus blood and 22 RBCs -continue to monitor 7. Elevated alk phos -will order GGT 8. Elevated ALT -more sensitive marker for liver injury -possible mets to liver? -continue to monitor 9. Normocytic anemia -will obtain baseline HGB -HGB 8.5 -transfuse prn 10. GI/DVT ppx -protonix daily -SCDs discussed with Dr. Ramirez <Martin Ramirez - Last Filed: 01/17/17 21:45> Objective - Vital Signs/Intake and Output Vital Signs (last 24 hours): Temp Pulse Resp BP Pulse Ox 98 F 90 20 135/81 100 01/17/17 16:06 01/17/17 20:10 01/17/17 16:06 01/17/17 16:06 01/17/17 16:06 Intake and Output: 01/17/17 01/18/17 18:59 06:59 Intake Total 100 Balance 100 - Medications Medications: Current Medications Aspirin (Aspirin Chewable) 81 mg PO DAILY [facility] Last Admin: 01/17/17 09:55 Dose: 81 mg Fludrocortisone Acetate (Florinef) 0.1 mg PO DAILY [facility] Last Admin: 01/17/17 09:56 Dose: 0.1 mg Gabapentin (Neurontin) 300 mg PO HS [facility] Last Admin: 01/16/17 22:34 Dose: 300 mg Piperacillin Sod/Tazobactam Sod (Zosyn 2.25 Gm Iv Premix) 2.25 gm in 50 mls @ 200 mls/hr IVPB Q6H [facility] Last Admin: 01/17/17 17:55 Dose: 200 mls/hr Pantoprazole Sodium (Protonix Inj) 40 mg IVP DAILY [facility] Last Admin: 01/17/17 09:56 Dose: 40 mg Senna/Docusate Sodium (Senokot S 50 Mg-8.6 Mg) 2 tab PO Q12H [facility] Last Admin: 01/17/17 09:56 Dose: 2 tab Tamsulosin HCl (Flomax) 0.4 mg PO DAILY [facility] Last Admin: 01/17/17 09:56 Dose: 0.4 mg Tobramycin Sulfate (Tobrex 0.3% Oph Soln) 0 drop OU DAILY [facility] Last Admin: 01/17/17 09:56 Dose: 1 drop - Labs Labs: 01/17/17 16:50 01/17/17 16:50 PT 25.8 SECONDS (9.7-12.2) H 01/16/17 11:21 INR 2.2 01/16/17 11:21 APTT 29 SECONDS (21-34) 01/16/17 11:21 Attending/Attestation - Attestation I have personally seen and examined this patient.: Yes I have fully participated in the care of the patient.: Yes I have reviewed all pertinent clinical information, including history, physical exam and plan: Yes Notes (Text): Patient was seen and examined unresponsive ,respond to deep pain D/W residnet continue current meds and fluids d/w patient's eldest Son and the daughter Discussed about the poor prognosis and his terminal condition Request to continue care including cardiopulmonary resuscitation if needed
[2017-01-17 19:25] LABS: ERYTHROCYTE SEDIMENTATION RATE 138 mm/hr (0-15)
--- NOTE | 2017-01-17 22:56 | CP.PCM.PN ---
Subjective - Date & Time of Evaluation Date of Evaluation: 01/17/17 Time of Evaluation: 18:10 - Subjective Subjective: An JUNK DEALER was called on this patient for poor oxygen saturation. The rest of his vitals were stable (as listed above). A non-breather was put on which did not resolve his poor oxygen saturation. A BIPAP was then put on which improved his oxygen saturation to 100%. BIPAP setting were as follows: IPAP 10 EPAP 5 Rate 12 O2 100%. The patient's chart was reviewed and his lastest CXR was reviewed, which showed possible pneumonia and small pleural effusion. Zosyn 2.25g IVPB Q6H was started stat. Furosemide 20mg IVP one time dose was given stat. A CXR was ordered stat. The patient's daughter Martita was called at 4:45AM and she was informed of the patient's de-saturation. The code status was also discussed, and the daughter requested the patient be FULL CODE. I checked on the patient again at 5:30AM and patient was saturating at 100%. Objective - Vital Signs/Intake and Output Vital Signs (last 24 hours): Temp Pulse Resp BP Pulse Ox 98 F 114 H 20 135/81 100 01/17/17 16:06 01/17/17 21:58 01/17/17 16:06 01/17/17 16:06 01/17/17 16:06 Intake and Output: 01/17/17 01/18/17 18:59 06:59 Intake Total 100 Balance 100 - Medications Medications: Current Medications Aspirin (Aspirin Chewable) 81 mg PO DAILY [facility] Last Admin: 01/17/17 09:55 Dose: 81 mg Fludrocortisone Acetate (Florinef) 0.1 mg PO DAILY [facility] Last Admin: 01/17/17 09:56 Dose: 0.1 mg Gabapentin (Neurontin) 300 mg PO HS [facility] Last Admin: 01/16/17 22:34 Dose: 300 mg Piperacillin Sod/Tazobactam Sod (Zosyn 2.25 Gm Iv Premix) 2.25 gm in 50 mls @ 200 mls/hr IVPB Q6H [facility] Last Admin: 01/17/17 17:55 Dose: 200 mls/hr Pantoprazole Sodium (Protonix Inj) 40 mg IVP DAILY [facility] Last Admin: 01/17/17 09:56 Dose: 40 mg Senna/Docusate Sodium (Senokot S 50 Mg-8.6 Mg) 2 tab PO Q12H [facility] Last Admin: 01/17/17 09:56 Dose: 2 tab Tamsulosin HCl (Flomax) 0.4 mg PO DAILY [facility] Last Admin: 01/17/17 09:56 Dose: 0.4 mg Tobramycin Sulfate (Tobrex 0.3% Oph Soln) 0 drop OU DAILY [facility] Last Admin: 01/17/17 09:56 Dose: 1 drop - Labs Labs: 01/17/17 16:50 01/17/17 16:50 PT 25.8 SECONDS (9.7-12.2) H 01/16/17 11:21 INR 2.2 01/16/17 11:21 APTT 29 SECONDS (21-34) 01/16/17 11:21 Assessment and Plan (1) CVA (cerebral vascular accident) Status: Acute (2) Metastatic cancer Status: Acute (3) Flank pain Status: Acute (4) Renal mass, left Status: Acute (5) Left lower lobe pneumonia Status: Acute (6) Sleep apnea Status: Acute (7) CPAP (continuous positive airway pressure) dependence Status: Acute
[2017-01-18] MEDS: Piperacill/Tazo 2.25gm in Dex 2.25 GM/50 ML BAG IVPB SCH ×5 (05:17→22:28)
[2017-01-18 07:23] LABS: CHLORIDE 98 mmol/L (98-107); POTASSIUM 3.5 mmol/L (3.6-5.2); SODIUM 134 mmol/L (132-148)
[2017-01-18 07:25] LABS: ALB/GLOB RATIO 0.9 (1.0-2.1); ALKALINE PHOSPHATASE 162 U/L (38-126); AST/SGOT 47 U/L (17-59); BILIRUBIN,TOTAL 1.4 mg/dL (0.2-1.3); CARBON DIOXIDE 25 mmol/L (22-30); GFR AFRICAN-AMERICAN > 60; TOTAL PROTEIN 6.2 g/dL (6.3-8.3)
[2017-01-18 07:26] LABS: ALT/SGPT 55 U/L (21-72); BLOOD UREA NITROGEN 21 mg/dL (9-20); CALCIUM 8.4 mg/dl (8.6-10.4); GLUCOSE,RANDOM 136 mg/dL (75-110); MAGNESIUM 1.6 mg/dL (1.6-2.3); PHOSPHOROUS 3.5 mg/dL (2.5-4.5)
--- NOTE | 2017-01-18 10:38 | CP.PCM.CON ---
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 The last time patient seen, patient was at his base state of health, alert, oriented and verbal. Upon admission to the hospital, the CT head revealed large left MCA infarct. While on the floor patient desaturated and INS[employer] was called for O2Sat < 90%. After the dose of Lasix and O2 supplement patient's condition has improved and patient was left on high pressure O2 mask. At that time, as per record, when attending Doctor Spoke to daughter over the phone she requested a Full Code. PMH: metastatic cancer, mets to bones and lymph nodes, S/P left nephrecromy, S/ P radiation, chemo Tx started on 01/07/17 Soc. Hx: NH resident Fam. Hx: denied by patient's nieces Review of Systems - Review of Systems All systems: reviewed and no additional remarkable complaints except Review of Systems: Unresponsive, ROS obtained from nursing, patient has been on CPap over night Past Patient History - Infectious Disease Hx of Infectious Diseases: None - Tetanus Immunizations Tetanus Immunization: Unknown - Past Medical History & Family History Past Medical History?: Yes Past Family History: Reviewed and not pertinent - Past Social History Smoking Status: Former Smoker Chewing Tobacco Use: No Cigar Use: No Alcohol: None Drugs: Cannabis Home Situation {Lives}: [facility] - CARDIAC Hx Hypertension: Yes - PULMONARY Hx Pneumonia: Yes - NEUROLOGICAL Hx Transient Ischemic Attacks (TIA): Yes Other/Comment: Hx of generalized weakness - HEENT Hx Glaucoma: Yes - RENAL Hx Chronic Kidney Disease: Yes Hx Kidney Stones: Yes - HEMATOLOGICAL/ONCOLOGICAL Hx Cancer: Yes Hx Chemotherapy: Yes - MUSCULOSKELETAL/RHEUMATOLOGICAL Hx Falls: No - PSYCHIATRIC Hx Substance Use: No - SURGICAL HISTORY Hx Surgeries: Yes Other/Comment: hx of renal surgery due to CA. wrist sx on left side - ANESTHESIA Hx Anesthesia: Yes Hx Anesthesia Reactions: No Hx Malignant Hyperthermia: No Has any member of the family had a problem w/ anesthesia?: No Meds Allergies/Adverse Reactions: Allergies Allergy/AdvReac Type Severity Reaction Status Date / Time No Known Allergies Allergy Verified 01/16/17 10:49 - Medications Medications: Current Medications Aspirin (Aspirin Chewable) 81 mg PO DAILY [facility] Last Admin: 01/17/17 09:55 Dose: 81 mg Enoxaparin Sodium (Lovenox) 40 mg SC DAILY [facility] Fludrocortisone Acetate (Florinef) 0.1 mg PO DAILY [facility] Last Admin: 01/17/17 09:56 Dose: 0.1 mg Gabapentin (Neurontin) 300 mg PO HS [facility] Last Admin: 01/17/17 23:00 Dose: 300 mg Piperacillin Sod/Tazobactam Sod (Zosyn 2.25 Gm Iv Premix) 2.25 gm in 50 mls @ 200 mls/hr IVPB Q6H [facility] Last Admin: 01/18/17 05:19 Dose: 200 mls/hr Potassium Chloride (Potassium Chloride 20 Meq/100 Ml) 20 meq in 100 mls @ 50 mls/hr IVPB ONCE ONE Stop: 01/18/17 11:42 Pantoprazole Sodium (Protonix Inj) 40 mg IVP DAILY [facility] Last Admin: 01/17/17 09:56 Dose: 40 mg Senna/Docusate Sodium (Senokot S 50 Mg-8.6 Mg) 2 tab PO Q12H [facility] Last Admin: 01/17/17 23:00 Dose: 2 tab Tamsulosin HCl (Flomax) 0.4 mg PO DAILY [facility] Last Admin: 01/17/17 09:56 Dose: 0.4 mg Tobramycin Sulfate (Tobrex 0.3% Oph Soln) 0 drop OU DAILY [facility] Last Admin: 01/17/17 09:56 Dose: 1 drop Physical Exam - Constitutional Appears: Chronically Ill - Head Exam Head Exam: ATRAUMATIC, NORMAL INSPECTION, NORMOCEPHALIC - Eye Exam Pupil Exam: Fixed - ENT Exam ENT Exam: Mucous Membranes Dry - Neck Exam Neck exam: Positive for: Normal Inspection - Respiratory Exam Respiratory Exam: Decreased Breath Sounds Additional comments: On CPap - Cardiovascular Exam Cardiovascular Exam: Tachycardia - GI/Abdominal Exam GI & Abdominal Exam: Hypoactive Bowel Sounds - Rectal Exam Rectal Exam: Deferred - Extremities Exam Extremities exam: Positive for: normal inspection - Back Exam Back exam: NORMAL INSPECTION - Neurological Exam Neurological exam: Motor Sensory Deficit - Psychiatric Exam Psychiatric exam: Flat Affect - Skin Skin Exam: Pallor Results - Vital Signs Recent Vital Signs: Last Vital Signs Temp 97.8 F 01/18/17 08:15 Pulse 90 01/18/17 08:15 Resp 20 01/18/17 08:15 BP 137/78 01/18/17 08:15 Pulse Ox 98 01/18/17 08:15 - Labs Result Diagrams: 01/17/17 16:50 01/18/17 06:57 Labs: Laboratory Results - last 24 hr 01/17/17 01/17/17 01/17/17 16:32 16:50 16:50 WBC 20.0 H D RBC 3.15 L Hgb 8.8 L Hct 27.5 L MCV 87.2 MCH 27.9 MCHC 32.0 L RDW 18.6 H Plt Count 213 MPV 7.3 Neut % (Auto) 94.5 H Lymph % (Auto) 1.6 L Reeves % (Auto) 3.6 Eos % (Auto) 0.1 Baso % (Auto) 0.2 Neut # 18.9 H Lymph # 0.3 L Reeves # 0.7 Eos # 0.0 Baso # 0.0 Neutrophils % (Manual) 95 H Lymphocytes % (Manual) 1 L Monocytes % (Manual) 4 Platelet Estimate Normal Polychromasia Slight Hypochromasia (manual) Slight Anisocytosis (manual) Slight Target Cells Slight ESR 138 H Sodium 132 Potassium 3.7 Chloride 96 L Carbon Dioxide 24 Anion Gap 16 BUN 18 Creatinine 0.8 Est GFR ( Amer) > 60 Est GFR (Non-Af Amer) > 60 POC Glucose (mg/dL) 136 H Random Glucose 125 H Calcium 8.5 L Phosphorus 4.0 Magnesium 1.7 Total Bilirubin 1.0 AST 33 ALT 73 H Alkaline Phosphatase 192 H C-React Prot High Sens Total Protein 7.2 Albumin 2.9 L Globulin 4.3 H Albumin/Globulin Ratio 0.7 L Vitamin B12 > 1000 H 25-OH Vitamin D Total 01/17/17 01/17/17 01/18/17 16:50 16:50 06:57 WBC RBC Hgb Hct MCV MCH MCHC RDW Plt Count MPV Neut % (Auto) Lymph % (Auto) Reeves % (Auto) Eos % (Auto) Baso % (Auto) Neut # Lymph # Reeves # Eos # Baso # Neutrophils % (Manual) Lymphocytes % (Manual) Monocytes % (Manual) Platelet Estimate Polychromasia Hypochromasia (manual) Anisocytosis (manual) Target Cells ESR Sodium 134 Potassium 3.5 L Chloride 98 Carbon Dioxide 25 Anion Gap 14 BUN 21 H Creatinine 0.9 Est GFR ( Amer) > 60 Est GFR (Non-Af Amer) > 60 POC Glucose (mg/dL) Random Glucose 136 H Calcium 8.4 L Phosphorus 3.5 Magnesium 1.6 Total Bilirubin 1.4 H AST 47 ALT 55 Alkaline Phosphatase 162 H C-React Prot High Sens > 15.00 H Total Protein 6.2 L Albumin 2.9 L Globulin 3.3 Albumin/Globulin Ratio 0.9 L Vitamin B12 25-OH Vitamin D Total 26.7 L Assessment & Plan - Assessment and Plan (Free Text) Assessment: Palliative consult Code status Unknown Full Code, there is no Advance Directive on the chart, PPS 0% I reviewed medical records, all diagnostic studies, examined patient in the bed and discussed his presentation with his sister and nieces at bed side. Patient is unresponsive to stimuli, GCS of 3, with c Pap on in no acute distress. Patient looks chronically ill, cachectic and with pale skin. Hb 8.8. O2 Sat 98% on C Pap, HR 90-113, afebrile, WBC 20.0, ESR 138. Breath sounds are diminished, abdomen flat and with hypoactive bowel sounds, there is active ROM. Patient's clinical [id number] reviewed with his sister and two nieces at bed side. The daughter was on her way. The family understands the severity of patient's condition and is leaning toward the comfort measures only. The family knows that daughter's first reaction was asking for Full Code, but they believe that daughter as well has changed her opinion. I provided them with my contact number to call me when the daughter arrives. Impression * This is chronically ill man with metastatic cancer and with acute CVA * Patient unresponsive to stimuli with GCS of 3 * There is a significant loss of quality of life * Patient's wishes for the end of life care are not known * The daughter Martita initially requested the Full Code. Her reaction is understandable as she was under the shock unable to make informed decision Suggestion * I will meet with daughter today and discuss Code Status * Will discuss comfort measures only as well Thank you very much for consulting Palliative Care
[2017-01-18] MEDS: Enoxaparin 40 mg Syringe SC SCH ×2 (11:00)
[2017-01-18] MEDS: Docusate-Senna 50 mg-8.6 mg Tab PO SCH ×2 (11:00→22:27)
[2017-01-18] MEDS: Tobramycin 0.3% OPHT SOLN OU SCH (11:00)
--- NOTE | 2017-01-18 11:08 | CP.PCM.PN ---
<Ronna Warner - Last Filed: 01/18/17 11:05> Subjective - Date & Time of Evaluation Date of Evaluation: 01/18/17 Time of Evaluation: 07:00 - Subjective Subjective: Medicine note for Dr. Olguin Patient seen and examined at bedside. Patient unresponsive and therefore ROS could not be obtained. Family was at bedside and wishes to make him DNR/DNI but they are waiting for his daughter to arrive and make that decision. Objective - Vital Signs/Intake and Output Vital Signs (last 24 hours): Temp Pulse Resp BP Pulse Ox 97.8 F 90 20 137/78 98 01/18/17 08:15 01/18/17 08:15 01/18/17 08:15 01/18/17 08:15 01/18/17 08:15 Intake and Output: 01/18/17 01/18/17 06:59 18:59 Intake Total 150 Output Total 875 Balance -725 - Medications Medications: Current Medications Aspirin (Aspirin Chewable) 81 mg PO DAILY [facility] Last Admin: 01/18/17 11:00 Dose: 81 mg Enoxaparin Sodium (Lovenox) 40 mg SC DAILY [facility] Last Admin: 01/18/17 11:00 Dose: 40 mg Fludrocortisone Acetate (Florinef) 0.1 mg PO DAILY [facility] Last Admin: 01/18/17 11:00 Dose: 0.1 mg Gabapentin (Neurontin) 300 mg PO HS [facility] Last Admin: 01/17/17 23:00 Dose: 300 mg Piperacillin Sod/Tazobactam Sod (Zosyn 2.25 Gm Iv Premix) 2.25 gm in 50 mls @ 200 mls/hr IVPB Q6H [facility] Last Admin: 01/18/17 05:19 Dose: 200 mls/hr Potassium Chloride (Potassium Chloride 20 Meq/100 Ml) 20 meq in 100 mls @ 50 mls/hr IVPB ONCE ONE Stop: 01/18/17 11:42 Pantoprazole Sodium (Protonix Inj) 40 mg IVP DAILY [facility] Last Admin: 01/18/17 11:00 Dose: 40 mg Senna/Docusate Sodium (Senokot S 50 Mg-8.6 Mg) 2 tab PO Q12H [facility] Last Admin: 01/18/17 11:00 Dose: 2 tab Tamsulosin HCl (Flomax) 0.4 mg PO DAILY [facility] Last Admin: 01/18/17 11:00 Dose: 0.4 mg Tobramycin Sulfate (Tobrex 0.3% Ophth Soln) 0 drop OU DAILY [facility] Last Admin: 01/18/17 11:00 Dose: 1 drop - Labs Labs: 01/17/17 16:50 01/18/17 06:57 PT 25.8 SECONDS (9.7-12.2) H 01/16/17 11:21 INR 2.2 01/16/17 11:21 APTT 29 SECONDS (21-34) 01/16/17 11:21 - Constitutional Appears: Older Than Stated Age, Cachectic, Chronically Ill - Head Exam Head Exam: ATRAUMATIC, NORMAL INSPECTION, NORMOCEPHALIC - Eye Exam Additional comments: Right pupil fixed constricted Left pupil dilated with sluggish response to light - Respiratory Exam Additional comments: on BiPAP - Cardiovascular Exam Cardiovascular Exam: RRR, +S1, +S2 - GI/Abdominal Exam GI & Abdominal Exam: Soft, Normal Bowel Sounds - Extremities Exam Extremities Exam: absent: Pedal Edema - Neurological Exam Additional comments: does not respond to commands or noxious stimuli but has occasional spontaneous UE movements GCS: 3 - Skin Skin Exam: Dry, Intact, Normal Color, Warm Assessment and Plan - Assessment and Plan (Free Text) Plan: 1. Acute CVA -PT IS FULL CODE but Vanessa is having a conversation with the family today about palliative care and making the patient DNR/DNI -head ct shows acute large left MCA territory infarction (please see full report ) -f/u MRI -f/u dietary eval for tube feeds -NG tube -asa 81 mg daily -lipid panel pending -pt is not a candidate for TPA per Dr. Vallejo -pt is not a candidate for endovascular intervention -neuro consult. Dr. Vallejo. recs appreciated. -monitor pt on tele unit -PT and OT evaluation -we will maintain adequate hydration with NS 100 cc/hr -a1c is 6.1 -CRP > 15. 1.5 Oxygen desaturation -bipap prn -f/u CTA chest to r/o PE -f/u LE dopplers to r/o DVT -f/u ABG and lactic acid -continue to monitor 2. hx of renal cancer with mets to lung and bone (questionable to liver) -continue to monitor -recent PET scan July 2016 -s/p nephrectomy -will try to obtain records from [facility] [place] 3. 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 -continue fludrocortisone daily 5. hx of BPH -continue flomax. 6. hematuria -UA shows 1 plus blood and 22 RBCs -continue to monitor 7. Elevated alk phos -will order GGT 8. Elevated ALT -more sensitive marker for liver injury -possible mets to liver? -continue to monitor 9. Normocytic anemia -will obtain baseline HGB -HGB 8.5 -transfuse prn 10. GI/DVT ppx -protonix daily -SCDs <ClauPeter H - Last Filed: 01/18/17 16:55> Objective - Vital Signs/Intake and Output Vital Signs (last 24 hours): Temp Pulse Resp BP Pulse Ox 97.8 F 103 H 20 137/78 98 01/18/17 08:15 01/18/17 12:00 01/18/17 08:15 01/18/17 08:15 01/18/17 08:15 Intake and Output: 01/18/17 01/18/17 06:59 18:59 Intake Total 150 150 Output Total 875 150 Balance -725 0 - Medications Medications: Current Medications Aspirin (Aspirin Chewable) 81 mg PO DAILY [facility] Last Admin: 01/18/17 11:00 Dose: 81 mg Dexamethasone (Decadron Inj) 4 mg IVP Q8H [facility] Enoxaparin Sodium (Lovenox) 40 mg SC DAILY [facility] Last Admin: 01/18/17 11:00 Dose: Not Given Fludrocortisone Acetate (Florinef) 0.1 mg PO DAILY [facility] Last Admin: 01/18/17 11:00 Dose: 0.1 mg Gabapentin (Neurontin) 300 mg PO HS [facility] Last Admin: 01/17/17 23:00 Dose: 300 mg Piperacillin Sod/Tazobactam Sod (Zosyn 2.25 Gm Iv Premix) 2.25 gm in 50 mls @ 200 mls/hr IVPB Q6H [facility] Last Admin: 01/18/17 12:00 Dose: 200 mls/hr Pantoprazole Sodium (Protonix Inj) 40 mg IVP DAILY [facility] Last Admin: 01/18/17 11:00 Dose: 40 mg Senna/Docusate Sodium (Senokot S 50 Mg-8.6 Mg) 2 tab PO Q12H [facility] Last Admin: 01/18/17 11:00 Dose: 2 tab Tamsulosin HCl (Flomax) 0.4 mg PO DAILY [facility] Last Admin: 01/18/17 11:00 Dose: 0.4 mg Tobramycin Sulfate (Tobrex 0.3% Ophth Soln) 0 drop OU DAILY [facility] Last Admin: 01/18/17 11:00 Dose: 1 drop - Labs Labs: 01/17/17 16:50 01/18/17 06:57 PT 25.8 SECONDS (9.7-12.2) H 01/16/17 11:21 INR 2.2 01/16/17 11:21 APTT 29 SECONDS (21-34) 01/16/17 11:21 Attending/Attestation - Attestation I have personally seen and examined this patient.: Yes I have fully participated in the care of the patient.: Yes I have reviewed all pertinent clinical information, including history, physical exam and plan: Yes Notes (Text): 01/18/17 16:55 Medical attending: Patient was seen and examined by me, agrees the above note by manager medical writing. When we saw the patient he was nonresponsive to any of our commands or stimuli he does have some random movements on occasion however this is not with any commands. As mentioned previously the patient has a history of very extensive cancer that has unfortunately had a lot of metastatic spread particularly to his bones liver and possibly to his lungs as well He did have some family members at bedside in the morning when I saw him. He was on BiPAP at that time. As reported previously the patient was in a jail and they noticed the sudden onset of change in mental status is brought to the hospital and unfortunately it's been determined that he has a very severe CVA. This was seen both on CAT scan is later on during the day we received phone call saying that the MRI of the brain showed that not only does he have very severe CVA affecting the MCA area but that he also has severe edema as well as some midline shifting as well. I started the patient on some IV Decadron however I was very scar with the patient's family and explained to them that I was worried that this would not work and the condition decline. From what I understand on Wednesday night he had an episode he became acutely short of breath. Today I ordered a CTA of the chest and unfortunately shows that he has very large pulmonary embolism given that he's just had a CVA Carotid thousand question to give blood thinning medication as it could lead to very severe hemorrhagic conversion especially since he has edema and midline shift I later on came back have a discussion with other family members and decided that they want to make the patient DNR and DNI. We also discussed with them such as comfort care and hospice care they explained to me that they want to discuss this with them selves Thank you very much Lenin Olguin
[2017-01-18 12:25] LABS: ABG ALLEN TEST UNABLE; DRAW SITE RR
[2017-01-18] MEDS ORDERED: Gadodiamide 287 MG/ML VIAL (15ML) IV ONE (13:42)
--- NOTE | 2017-01-18 13:57 | CARD ---
APPROVED REPORT EKG Measurement Heart [id number] <Conclusion> Normal sinus rhythm with sinus arrhythmia Possible Left atrial enlargement Borderline ECG
[2017-01-18] MEDS ORDERED: Iodixanol 320 MG/ML 100 ML BOTTLE IV ONE (14:41)
--- NOTE | 2017-01-18 15:21 | MRI ---
PROCEDURE: MRI BRAIN WITH AND WITHOUT CONTRAST HISTORY: Metastatic Brain Cancer COMPARISON: Unenhanced Head CT 01/16/2017. TECHNIQUE: Multiplanar, multisequence MR images of the brain were obtained with and without intravenous contrast enhancement (Omniscan 11 cc). FINDINGS: HEMORRHAGE: None DWI: The previous acute left MCA brain infarction has progressed with extensive mass effect now resulting and subfalcine and sub sulcal herniation exerting significant mass effect on the upper brain stem at the left cerebral peduncle and upper saundra, both of which are also shifted rightward. Overall right were herniation appears to be approximately 1.9 cm. Will left post cerebral artery distribution is spared from cytotoxic edema. Bilateral anterior cerebral artery acute infarctions are also identified either intrinsic clear on the basis of rightward shift caused by the large left MCA ischemic infarct. No intracranial enhancing mass identified throughout the examination and there is in fact a loss of the signal void at the left ICA suggesting occlusion. The left lateral ventricle temporal horn appears trapped and moderately dilated with the likely developing right lateral ventricle dilatation indicating developing obstructive hydrocephalus. The 4th ventricle is borderline increased in size compared to the head CT 01/16/2017. VENTRICLES: Developing hydrocephalus likely as above. CRANIUM: Unremarkable. ORBITS: Grossly unremarkable. PARANASAL SINUSES/MASTOIDS: Clear VASCULAR SYSTEM: Left cavernous ICA occlusion suggested. OTHER FINDINGS: None . IMPRESSION: Massive edema affects the left MCA distribution with the bilateral anterior cerebral arteries involved as well this time, potentially as a function of mass-effect from the left MCA infarct or intrinsically involved. There is likely occlusion of the left middle cerebral artery given loss of normal flow-void at the cavernous sinus level. Subuncal and subfalcine rightward herniation is appreciated to 1.8 cm. No evidence to suggest metastatic contrast enhancement throughout the brain. Findings were discussed with Dr. Clint Vallejo by telephone with written down and read back verification 12/18/2016 3:05 p.m..
--- NOTE | 2017-01-18 15:45 | CT ---
PROCEDURE: CT Chest with contrast (Pulmonary Angiogram) HISTORY: r/o PE COMPARISON: None available. TECHNIQUE: Axial computed tomography images were obtained of the chest in the pulmonary arterial phase of enhancement. Coronal and sagittal reformatted images were created and reviewed. Intravenous contrast dose: 100 mL Visipaque 320 Radiation dose: Total exam DLP = 281.32 mGy-cm. This CT exam was performed using one or more of the following dose reduction techniques: Automated exposure control, adjustment of the mA and/or kV according to patient size, and/or use of iterative reconstruction technique. FINDINGS: PULMONARY ARTERIES: There is extensive pulmonary embolism involving right lower lobe, left upper lobe and left lower lobe vessels. The right upper lobe and right middle lobe appears spared. There is no central saddle embolus. AORTA: No acute findings. No thoracic aortic aneurysm. LUNGS: Right lower lobe patchy opacities common nonspecific. Possibly infectious. Bilateral lower lobe subsegmental atelectasis. Scar consolidation superior segment right lower lobe. Irregular opacity in apical posterior segment left upper lobe, bilobed in appearance. Rule out neoplasm. Rule out infectious etiology. 3.3 cm greatest dimension. PLEURAL SPACES: Small left pleural effusion. No definite right pleural effusion. No pneumothorax. HEART: Normal heart size. No pericardial effusion. No radiographic evidence of RV strain. Please note that a nasogastric tube is seen traversing the esophagus to upper abdomen. LYMPH NODES: Minimally enlarged mediastinal nodes, prevascular, to 11 mm. Evaluation of the mediastinum is limited by imaging in the arterial phase of enhancement. Please note that there is a soft tissue mass immediately adjacent to the medial left clavicle with gross expansile lytic destruction of the medial left clavicle. This soft tissue mass is at the level of the thoracic inlet and measures up to 3.4 cm in diameter. BONES, CHEST WALL: In addition to lytic destruction of the medial left clavicle, there is lytic destruction of the T7 and T8 vertebral bodies as well as the left posterior processes of T8 and destruction of the medial posterior 8th rib on the left side. There is also probable epidural extension of tumor at the T8 level without evidence of gross spinal stenosis at this time. Consider evaluation with MRI of the C-spine. OTHER FINDINGS: Imaging of the upper abdomen though limited by phase of enhancement demonstrates 2 low-density likely cystic splenic masses, 2.4 x 2.6 cm and 5.5 x 6.0 cm. Differential diagnosis would include metastasis as well as splenic cyst, lymphangioma, hemangioma or less common entities. IMPRESSION: Gross pulmonary embolism involving right lower lobe, left upper and left lower lobe vessels. No radiographic evidence of RV strain. Please correlate with EKG evaluation for RV strain. Small left pleural effusion. Opacities in the right lower lobe as well as scar consolidation superior segment right lower lobe. Bilobed opacity in apical posterior left upper lobe. Possible neoplasm. Rule out pneumonia. Multiple lytic osseous metastases with associated soft tissue mass as described. There is lytic destruction of the T7 and T8 vertebrae with probable epidural extension of tumor at the T8 level. Destruction of medial posterior left 8th rib. Two cystic splenic masses, possibly metastatic. Findings were discussed with the patient's nurse, Marianna at 3:30 p.m. on 01/18/2017.
[2017-01-18] MEDS: Dexamethasone 4 mg/1 ml IVP SCH (17:04)
--- NOTE | 2017-01-19 01:09 | CP.PCM.PN ---
Subjective - Date & Time of Evaluation Date of Evaluation: 01/18/17 Time of Evaluation: 17:00 - Subjective Subjective: IMPRESSION of MRI Brain of 01/18/2017: Massive edema affects the left MCA distribution with the bilateral anterior cerebral arteries involved as well this time, potentially as a function of mass- effect from the left MCA infarct or intrinsically involved. There is likely occlusion of the left middle cerebral artery given loss of normal flow-void at the cavernous sinus level. Subuncal and subfalcine rightward herniation is appreciated to 1.8 cm. No evidence to suggest metastatic contrast enhancement throughout the brain. Findings were discussed with Dr. Clint Vallejo by telephone with written down and read back verification 12/18/2016 3:05 p.m.. IMPRESSION of Chest CT Scan: Gross pulmonary embolism involving right lower lobe, left upper and left lower lobe vessels. No radiographic evidence of RV strain. Please correlate with EKG evaluation for RV strain. Small left pleural effusion. Opacities in the right lower lobe as well as scar consolidation superior segment right lower lobe. Bilobed opacity in apical posterior left upper lobe. Possible neoplasm. Rule out pneumonia. Multiple lytic osseous metastases with associated soft tissue mass as described. There is lytic destruction of the T7 and T8 vertebrae with probable epidural extension of tumor at the T8 level. Destruction of medial posterior left 8th rib. Two cystic splenic masses, possibly metastatic. Findings were discussed with the patient's nurse, Marianna at 3:30 p.m. on 2016. Patient has a massive CVA and a Massive Pulmonary Embolism He is intended to be DNR bur his daughter did not consent yet. He is not responsive GCS is 3 I informed the floor with the MRI findings and the results were conveyed to the attending Very Poor Prognosis. Objective - Vital Signs/Intake and Output Vital Signs (last 24 hours): Temp Pulse Resp BP Pulse Ox 97.2 F L 92 H 18 103/68 100 01/18/17 15:12 01/18/17 23:35 01/18/17 15:12 01/18/17 15:12 01/18/17 15:12 Intake and Output: 01/18/17 01/19/17 18:59 06:59 Intake Total 150 Output Total 150 Balance 0 - Medications Medications: Current Medications Aspirin (Aspirin Chewable) 81 mg PO DAILY [facility] Last Admin: 01/18/17 11:00 Dose: 81 mg Dexamethasone (Decadron Inj) 4 mg IVP Q8H [facility] Last Admin: 01/18/17 17:04 Dose: 4 mg Enoxaparin Sodium (Lovenox) 40 mg SC DAILY [facility] Last Admin: 01/18/17 11:00 Dose: Not Given Fludrocortisone Acetate (Florinef) 0.1 mg PO DAILY [facility] Last Admin: 01/18/17 11:00 Dose: 0.1 mg Gabapentin (Neurontin) 300 mg PO HS [facility] Last Admin: 01/18/17 22:27 Dose: 300 mg Piperacillin Sod/Tazobactam Sod (Zosyn 2.25 Gm Iv Premix) 2.25 gm in 50 mls @ 200 mls/hr IVPB Q6H [facility] Last Admin: 01/18/17 22:28 Dose: 200 mls/hr Pantoprazole Sodium (Protonix Inj) 40 mg IVP DAILY [facility] Last Admin: 01/18/17 11:00 Dose: 40 mg Senna/Docusate Sodium (Senokot S 50 Mg-8.6 Mg) 2 tab PO Q12H [facility] Last Admin: 01/18/17 22:27 Dose: 2 tab Tamsulosin HCl (Flomax) 0.4 mg PO DAILY [facility] Last Admin: 01/18/17 11:00 Dose: 0.4 mg Tobramycin Sulfate (Tobrex 0.3% [facility]) 0 drop OU DAILY [facility] Last Admin: 01/18/17 11:00 Dose: 1 drop - Labs Labs: 01/17/17 16:50 01/18/17 06:57 PT 25.8 SECONDS (9.7-12.2) H 01/16/17 11:21 INR 2.2 01/16/17 11:21 APTT 29 SECONDS (21-34) 01/16/17 11:21 Assessment and Plan (1) CVA (cerebral vascular accident) Status: Acute (2) Metastatic cancer Status: Acute (3) Flank pain Status: Acute (4) Renal mass, left Status: Acute (5) Left lower lobe pneumonia Status: Acute (6) Sleep apnea Status: Acute (7) CPAP (continuous positive airway pressure) dependence Status: Acute (8) Pulmonary embolism Assessment & Plan: massive Pulmonary Embolism, seen by CT Chest Very Poor Prognosis. Status: Acute
[2017-01-19 02:10] VITALS: RESP 20
[2017-01-19] MEDS: Dexamethasone 4 mg/1 ml IVP SCH ×2 (02:40→08:38)
[2017-01-19] MEDS: Piperacill/Tazo 2.25gm in Dex 2.25 GM/50 ML BAG IVPB SCH ×2 (04:29→10:38)
[2017-01-19 07:34] LABS: BASO % 0.1 % (0.0-2.0); HEMATOCRIT 26.3 % (35.0-51.0); LYMPH # 0.2 K/uL (1.0-4.3); LYMPH % 1.1 % (20.0-40.0); MEAN CORPUSCULAR HGB CONC 31.9 g/dL (33.0-37.0); MEAN PLATELET VOLUME 8.2 fL (7.2-11.7); MONO # 0.2 K/uL (0.0-0.8); MONO % 1.1 % (0.0-10.0); PLATELET COUNT 199 K/uL (130-400); RED CELL DISTRIBUTION WIDTH 18.2 % (11.5-14.5); WHITE BLOOD COUNT 17.5 K/uL (4.8-10.8)
[2017-01-19 08:37] VITALS: BP 114/71; TEMP 98.1; O2SAT 97
[2017-01-19 08:37] LABS: CHLORIDE 102 mmol/L (98-107)
[2017-01-19 08:38] LABS: POTASSIUM 3.6 mmol/L (3.6-5.2); SODIUM 136 mmol/L (132-148)
[2017-01-19 08:40] LABS: ALB/GLOB RATIO 0.9 (1.0-2.1); ALKALINE PHOSPHATASE 158 U/L (38-126); AST/SGOT 31 U/L (17-59); BLOOD UREA NITROGEN 27 mg/dL (9-20); CARBON DIOXIDE 24 mmol/L (22-30); GFR AFRICAN-AMERICAN > 60; GLUCOSE,RANDOM 151 mg/dL (75-110); TOTAL PROTEIN 6.1 g/dL (6.3-8.3)
[2017-01-19 08:41] LABS: ALT/SGPT 47 U/L (21-72); CALCIUM 8.6 mg/dl (8.6-10.4); MAGNESIUM 1.9 mg/dL (1.6-2.3); PHOSPHOROUS 3.4 mg/dL (2.5-4.5)
[2017-01-19 09:18] LABS: NEUTROPHIL 94 % (50-75); TOTAL CELLS COUNTED 100
[2017-01-19] MEDS: Docusate-Senna 50 mg-8.6 mg Tab PO SCH (10:19)
[2017-01-19] MEDS: Tobramycin 0.3% OPHT SOLN OU SCH (10:19)
[2017-01-19] MEDS: Enoxaparin 40 mg Syringe SC SCH (10:22)
--- NOTE | 2017-01-19 10:36 | CP.PCM.PN ---
<Ronna Warner - Last Filed: 01/19/17 12:28> Subjective - Date & Time of Evaluation Date of Evaluation: 01/19/17 Time of Evaluation: 10:33 - Subjective Subjective: Medicine note for Dr. Olguin Patient seen and examined at bedside. Patient is unresponsive and ROS can not be obtained. Objective - Vital Signs/Intake and Output Vital Signs (last 24 hours): Temp Pulse Resp BP Pulse Ox 98.1 F 80 20 114/71 97 01/19/17 07:40 01/19/17 07:40 01/19/17 07:40 01/19/17 07:40 01/19/17 07:40 Intake and Output: 01/19/17 01/19/17 06:59 18:59 Intake Total 410 Output Total 450 Balance -40 - Medications Medications: Current Medications Aspirin (Aspirin Chewable) 81 mg PO DAILY [facility] Last Admin: 01/19/17 10:19 Dose: 81 mg Dexamethasone (Decadron Inj) 4 mg IVP Q8H [facility] Last Admin: 01/19/17 08:38 Dose: 4 mg Enoxaparin Sodium (Lovenox) 40 mg SC DAILY [facility] Last Admin: 01/19/17 10:22 Dose: Not Given Fludrocortisone Acetate (Florinef) 0.1 mg PO DAILY [facility] Last Admin: 01/19/17 10:19 Dose: 0.1 mg Gabapentin (Neurontin) 300 mg PO HS [facility] Last Admin: 01/18/17 22:27 Dose: 300 mg Piperacillin Sod/Tazobactam Sod (Zosyn 2.25 Gm Iv Premix) 2.25 gm in 50 mls @ 200 mls/hr IVPB Q6H [facility] Last Admin: 01/19/17 04:29 Dose: 200 mls/hr Pantoprazole Sodium (Protonix Inj) 40 mg IVP DAILY [facility] Last Admin: 01/19/17 10:19 Dose: 40 mg Senna/Docusate Sodium (Senokot S 50 Mg-8.6 Mg) 2 tab PO Q12H [facility] Last Admin: 01/19/17 10:19 Dose: 2 tab Tamsulosin HCl (Flomax) 0.4 mg PO DAILY [facility] Last Admin: 01/19/17 10:19 Dose: 0.4 mg Tobramycin Sulfate (Tobrex 0.3% [facility]) 0 drop OU DAILY [facility] Last Admin: 01/19/17 10:19 Dose: 1 drop - Labs Labs: 01/19/17 07:18 01/19/17 07:18 PT 25.8 SECONDS (9.7-12.2) H 01/16/17 11:21 INR 2.2 01/16/17 11:21 APTT 29 SECONDS (21-34) 01/16/17 11:21 - Additional Findings Additional findings: - Constitutional Appears: Older Than Stated Age, Cachectic, Chronically Ill - Head Exam Head Exam: ATRAUMATIC, NORMAL INSPECTION, NORMOCEPHALIC - Eye Exam Additional comments: Right pupil fixed constricted Left pupil fixed dilated - Respiratory Exam Additional comments: on BiPAP - Cardiovascular Exam Cardiovascular Exam: RRR, +S1, +S2 - GI/Abdominal Exam GI & Abdominal Exam: Soft, Normal Bowel Sounds - Extremities Exam Extremities Exam: absent: Pedal Edema - Neurological Exam Additional comments: Does not respond to commands or noxious stimuli but has occasional spontaneous UE movements Decerebrate posturing GCS: 3 - Skin Skin Exam: Dry, Intact, Normal Color, Warm Assessment and Plan - Assessment and Plan (Free Text) Plan: Disposition: Patient is currently DNR/DNI and his family wants to wait 1-2 more days to make the decision to switch him to comfort care only. 1. Acute CVA -01/18/17: PT IS DNR/DNI -head ct shows acute large left MCA territory infarction (please see full report ) -f/u MRI -f/u dietary eval for tube feeds -NG tube -asa 81 mg daily -lipid panel pending -pt is not a candidate for TPA per Dr. Vallejo -pt is not a candidate for endovascular intervention -neuro consult. Dr. Vallejo. recs appreciated. -monitor pt on tele unit -PT and OT evaluation -we will maintain adequate hydration with NS 100 cc/hr -a1c is 6.1 -CRP > 15. 1.5 Oxygen desaturation -bipap prn -f/u CTA chest to r/o PE -f/u LE dopplers to r/o DVT -f/u ABG and lactic acid -continue to monitor 2. hx of renal cancer with mets to lung and bone (questionable to liver) -continue to monitor -recent PET scan July 2016 -s/p nephrectomy -[place] [facility] [place] 3. Hx of neuropathic pain -continue gabapentin 4. 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 -continue fludrocortisone daily 5. hx of BPH -continue flomax. 6. hematuria -UA shows 1 plus blood and 22 RBCs -continue to monitor 7. Elevated alk phos -will order GGT 8. Elevated ALT -more sensitive marker for liver injury -possible mets to liver? -continue to monitor 9. Normocytic anemia -will obtain baseline HGB -HGB 8.5 -transfuse prn 10. GI/DVT ppx -protonix daily -SCDs <Olguin,Peter H - Last Filed: 01/19/17 14:08> Objective - Vital Signs/Intake and Output Vital Signs (last 24 hours): Temp Pulse Resp BP Pulse Ox 98.1 F 88 20 114/71 97 01/19/17 07:40 01/19/17 08:00 01/19/17 07:40 01/19/17 07:40 01/19/17 07:40 Intake and Output: 01/19/17 01/19/17 06:59 18:59 Intake Total 410 Output Total 450 Balance -40 - Medications Medications: Current Medications Aspirin (Aspirin Chewable) 81 mg PO DAILY [facility] Last Admin: 01/19/17 10:19 Dose: 81 mg Dexamethasone (Decadron Inj) 4 mg IVP Q8H [facility] Last Admin: 01/19/17 08:38 Dose: 4 mg Enoxaparin Sodium (Lovenox) 40 mg SC DAILY [facility] Last Admin: 01/19/17 10:22 Dose: Not Given Fludrocortisone Acetate (Florinef) 0.1 mg PO DAILY [facility] Last Admin: 01/19/17 10:19 Dose: 0.1 mg Gabapentin (Neurontin) 300 mg PO HS [facility] Last Admin: 01/18/17 22:27 Dose: 300 mg Piperacillin Sod/Tazobactam Sod (Zosyn 2.25 Gm Iv Premix) 2.25 gm in 50 mls @ 200 mls/hr IVPB Q6H [facility] Last Admin: 01/19/17 10:38 Dose: 200 mls/hr Pantoprazole Sodium (Protonix Inj) 40 mg IVP DAILY [facility] Last Admin: 01/19/17 10:19 Dose: 40 mg Senna/Docusate Sodium (Senokot S 50 Mg-8.6 Mg) 2 tab PO Q12H [facility] Last Admin: 01/19/17 10:19 Dose: 2 tab Tamsulosin HCl (Flomax) 0.4 mg PO DAILY [facility] Last Admin: 01/19/17 10:19 Dose: 0.4 mg Tobramycin Sulfate (Tobrex 0.3% [facility]) 0 drop OU DAILY [facility] Last Admin: 01/19/17 10:19 Dose: 1 drop - Labs Labs: 01/19/17 07:18 01/19/17 07:18 PT 25.8 SECONDS (9.7-12.2) H 01/16/17 11:21 INR 2.2 01/16/17 11:21 APTT 29 SECONDS (21-34) 01/16/17 11:21 Attending/Attestation - Attestation I have personally seen and examined this patient.: Yes I have fully participated in the care of the patient.: Yes I have reviewed all pertinent clinical information, including history, physical exam and plan: Yes Notes (Text): 01/19/17 14:04 Medical Attending: Patient was seen and examined by me. Agree with the above note by the resident The patient's situation is unfourtunately not changed from previous. The patient family was not present today however I did have a very long discussion with the family members yesterday. He was made DNR and DNI yesterday. Palliative care will further discuss if the family wishes for hospice/comfort care or not. On exam there's no pupillary movement - probably a reflection of the worsening cerebral edema that was reported on imaging. He is on decadron IV however this is probably futile. thank you Lenin Olguin
--- NOTE | 2017-01-19 10:37 | CP.PCM.PCO ---
Physician Communication Note - Physician Communication Note Physician Communication Note: Family meeting at 11:30 am for hospce care discussion
[2017-01-19 15:02] VITALS: PULSE 118
--- NOTE | 2017-01-20 01:13 | CP.PCM.PN ---
Subjective - Date & Time of Evaluation Date of Evaluation: 01/19/17 Time of Evaluation: 14:00 - Subjective Subjective: Family consented to Hospice care, he is transferred to Hospice care. Objective - Vital Signs/Intake and Output Vital Signs (last 24 hours): Temp Pulse Resp BP Pulse Ox 98.1 F 118 H 20 114/71 97 01/19/17 07:40 01/19/17 12:45 01/19/17 07:40 01/19/17 07:40 01/19/17 07:40 Intake and Output: 01/19/17 01/20/17 18:59 06:59 Intake Total 290 Output Total 200 Balance 90 - Labs Labs: 01/19/17 07:18 01/19/17 07:18 PT 25.8 SECONDS (9.7-12.2) H 01/16/17 11:21 INR 2.2 01/16/17 11:21 APTT 29 SECONDS (21-34) 01/16/17 11:21 Assessment and Plan (1) CVA (cerebral vascular accident) Status: Acute (2) Metastatic cancer Status: Acute (3) Flank pain Status: Acute (4) Renal mass, left Status: Acute (5) Left lower lobe pneumonia Status: Acute (6) Sleep apnea Status: Acute (7) CPAP (continuous positive airway pressure) dependence Status: Acute (8) Pulmonary embolism Status: Acute
[2017-01-21 01:45] LABS: VITAMIN B6 < 2.0 ng/mL (2.1-21.7)
--- NOTE | 2017-01-21 07:53 | CP.PCM.DIS ---
<Ronna Warner - Last Filed: 01/21/17 07:48> Provider - Provider Date of Admission: 01/16/17 12:34 Attending physician: Lenin Olguin DO [facility] Time Spent in preparation of Discharge (in minutes): 35 Diagnosis - Discharge Diagnosis (1) CVA (cerebral vascular accident) Status: Acute (2) Metastatic cancer Status: Acute (3) Pulmonary embolism Status: Acute Hospital Course - Lab Results Lab Results: Micro Results 01/16/17 13:30 Blood Blood Culture - Preliminary NO GROWTH AFTER 4 DAYS 01/16/17 12:30 Blood Blood Culture - Preliminary NO GROWTH AFTER 4 DAYS 01/16/17 11:47 Urine,Avilez Urine Culture - Final No Growth (<1,000 CFU/ML) Most Recent Lab Values WBC 17.5 K/uL (4.8-10.8) H 01/19/17 07:18 RBC 2.98 Mil/uL (4.40-5.90) L 01/19/17 07:18 Hgb 8.4 g/dL (12.0-18.0) L 01/19/17 07:18 Hct 26.3 % (35.0-51.0) L 01/19/17 07:18 MCV 88.0 fL (80.0-94.0) 01/19/17 07:18 MCH 28.0 pg (27.0-31.0) 01/19/17 07:18 MCHC 31.9 g/dL (33.0-37.0) L 01/19/17 07:18 RDW 18.2 % (11.5-14.5) H 01/19/17 07:18 Plt Count 199 K/uL (130-400) 01/19/17 07:18 MPV 8.2 fL (7.2-11.7) 01/19/17 07:18 Neut % (Auto) 97.7 % (50.0-75.0) H 01/19/17 07:18 Lymph % (Auto) 1.1 % (20.0-40.0) L 01/19/17 07:18 [place] % (Auto) 1.1 % (0.0-10.0) 01/19/17 07:18 Eos % (Auto) 0.0 % (0.0-4.0) 01/19/17 07:18 Baso % (Auto) 0.1 % (0.0-2.0) 01/19/17 07:18 Neut # 17.1 K/uL (1.8-7.0) H 01/19/17 07:18 Lymph # 0.2 K/uL (1.0-4.3) L 01/19/17 07:18 [place] # 0.2 K/uL (0.0-0.8) 01/19/17 07:18 Eos # 0.0 K/uL (0.0-0.7) 01/19/17 07:18 Baso # 0.0 K/uL (0.0-0.2) 01/19/17 07:18 Neutrophils % (Manual) 94 % (50-75) H 01/19/17 07:18 Band Neutrophils % 2 % (0-2) 01/19/17 07:18 Lymphocytes % (Manual) 3 % (20-40) L 01/19/17 07:18 Monocytes % (Manual) 1 % (0-10) 01/19/17 07:18 Myelocytes % 2 % (0-0) H 01/16/17 11:21 Platelet Estimate Normal (NORMAL) 01/19/17 07:18 Polychromasia Slight 01/19/17 07:18 Hypochromasia (manual) Slight 01/19/17 07:18 Anisocytosis (manual) Slight 01/19/17 07:18 Target Cells Slight 01/19/17 07:18 ESR 138 mm/hr (0-15) H 01/17/17 16:50 PT 25.8 SECONDS (9.7-12.2) H 01/16/17 11:21 INR 2.2 01/16/17 11:21 APTT 29 SECONDS (21-34) 01/16/17 11:21 Puncture Site Rr 01/18/17 12:22 pCO2 34 mm/Hg (35-45) L 01/18/17 12:22 pO2 118 mm/Hg (80-100) H 01/18/17 12:22 HCO3 27.8 mmol/L (21-28) 01/18/17 12:22 ABG pH 7.50 (7.35-7.45) H 01/18/17 12:22 ABG Total CO2 27.5 mmol/L (22-28) 01/18/17 12:22 ABG O2 Saturation 99.8 % (95-98) H 01/18/17 12:22 ABG Base Excess 3.6 mmol/L (-2.0-3.0) H 01/18/17 12:22 Ankit Test Unable 01/18/17 12:22 ABG Potassium 3.2 mmol/L (3.6-5.2) L 01/18/17 12:22 VBG pH 7.33 (7.32-7.43) 01/16/17 12:40 VBG pCO2 53 mmHg (40-60) 01/16/17 12:40 VBG HCO3 24.0 mmol/L 01/16/17 12:40 VBG Total CO2 29.5 mmol/L (22-28) H 01/16/17 12:40 VBG O2 Sat (Calc) 36.1 % (40-65) L 01/16/17 12:40 VBG Base Excess 1.0 mmol/L (0.0-2.0) 01/16/17 12:40 VBG Potassium 4.7 mmol/L (3.6-5.2) 01/16/17 12:40 A-a O2 Difference 125.0 mm/Hg 01/18/17 12:22 Respiratory Index 1.1 01/18/17 12:22 Sodium 139.0 mmol/l (132-148) 01/18/17 12:22 Chloride 107.0 mmol/L (98-107) 01/18/17 12:22 Glucose 138 mg/dl (75-110) H 01/18/17 12:22 Lactate 1.2 mmol/L (0.7-2.1) 01/18/17 12:22 Liter Flow 8.0 01/18/17 12:22 FiO2 40.0 % 01/18/17 12:22 Sodium 136 mmol/L (132-148) 01/19/17 07:18 Potassium 3.6 mmol/L (3.6-5.2) 01/19/17 07:18 Chloride 102 mmol/L (98-107) 01/19/17 07:18 Carbon Dioxide 24 mmol/L (22-30) 01/19/17 07:18 Anion Gap 15 (10-20) 01/19/17 07:18 BUN 27 mg/dL (9-20) H 01/19/17 07:18 Creatinine 1.1 mg/dL (0.8-1.5) 01/19/17 07:18 Est GFR ( Amer) > 60 01/19/17 07:18 Est GFR (Non-Af Amer) > 60 01/19/17 07:18 POC Glucose (mg/dL) 136 mg/dL (65-110) H 01/17/17 16:32 Random Glucose 151 mg/dL (75-110) H 01/19/17 07:18 Hemoglobin A1c 6.1 % (4.2-6.5) 01/16/17 11:21 Calcium 8.6 mg/dl (8.6-10.4) 01/19/17 07:18 Phosphorus 3.4 mg/dL (2.5-4.5) 01/19/17 07:18 Magnesium 1.9 mg/dL (1.6-2.3) 01/19/17 07:18 Total Bilirubin 1.0 mg/dL (0.2-1.3) 01/19/17 07:18 GGT 181 U/L (8-78) H 01/16/17 16:50 AST 31 U/L (17-59) 01/19/17 07:18 ALT 47 U/L (21-72) 01/19/17 07:18 Alkaline Phosphatase 158 U/L (38-126) H 01/19/17 07:18 Total Creatine Kinase < 20 U/L (55-170) L 01/16/17 11:21 CK-MB (Mass) 0.30 ng/mL (0.0-3.38) 01/16/17 11:21 Troponin I, Quant 0.0630 ng/mL (0.00-0.120) 01/16/17 11:21 C-React Prot High Sens > 15.00 mg/L (1.00-3.00) H 01/17/17 16:50 Total Protein 6.1 g/dL (6.3-8.3) L 01/19/17 07:18 Albumin 2.9 g/dL (3.5-5.0) L 01/19/17 07:18 Globulin 3.2 gm/dL (2.2-3.9) 01/19/17 07:18 Albumin/Globulin Ratio 0.9 (1.0-2.1) L 01/19/17 07:18 Triglycerides 85 mg/dL (0-149) 01/16/17 11:21 Cholesterol 102 mg/dL (0-199) 01/16/17 11:21 LDL Cholesterol Direct 63 mg/dL (0-129) 01/16/17 11:21 HDL Cholesterol 23 mg/dL (30-70) L 01/16/17 11:21 Vitamin B6 < 2.0 ng/mL (2.1-21.7) L 01/17/17 16:50 Vitamin B12 > 1000 pg/mL (239-931) H 01/17/17 16:50 25-OH Vitamin D Total 26.7 NG/ML (30.0-100.0) L 01/17/17 16:50 Arterial Blood Potassium 3.2 mmol/L (3.6-5.2) L 01/18/17 12:22 Venous Blood Potassium 4.7 mmol/L (3.6-5.2) 01/16/17 12:40 Urine Color Yellow (YELLOW) 01/16/17 11:58 Urine Clarity Clear (Clear) 01/16/17 11:58 Urine pH 7.0 (5.0-8.0) 01/16/17 11:58 Ur Specific [place] 1.011 (1.003-1.030) 01/16/17 11:58 Urine Protein Negative mg/dL (NEGATIVE) 01/16/17 11:58 Urine Glucose (UA) Normal mg/dL (Normal) 01/16/17 11:58 Urine Ketones Negative mg/dL (NEGATIVE) 01/16/17 11:58 Urine Blood 1+ (NEGATIVE) H 01/16/17 11:58 Urine Nitrate Negative (NEGATIVE) 01/16/17 11:58 Urine Bilirubin Negative (NEGATIVE) 01/16/17 11:58 Urine Urobilinogen Normal mg/dL (0.2-1.0) 01/16/17 11:58 Ur Leukocyte Esterase Neg Tika/uL (Negative) 01/16/17 11:58 Urine WBC (Auto) 4 /hpf (0-5) 01/16/17 11:58 Urine RBC (Auto) 22 /hpf (0-3) H 01/16/17 11:58 ROSSY 6 Profile Negative (NEGATIVE) 01/17/17 16:50 Blood Type A POSITIVE 01/17/17 08:14 Blood Type Confirm A POSITIVE 01/16/17 11:21 Antibody Screen Negative 01/17/17 08:14 - Hospital Course Hospital Course: Upon admission: This is a 71 yo male, originally from , prison resident, with past medical hx of kidney tumor, stage IV cancer (unknown primary), 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 Patient is unable to give any hx. Patient is accompanied by daughter at bedside. She reports that was in his usual state of health until this morning. She was told that prison aides found him "unresponsive" this morning with left lateral gaze. He was brought to [facility] ER with concern for massive stroke. ROS unable to be obtained. He is seeing oncologist Casey Beckford. Last chemo 2 weeks ago. Last radiation tx 3 weeks ago. Patient has been in and out of [facility]. Last PET scan from July shows lesion on left kidney suspicious for malignancy along with lesions in lung and bone suspicious for mets. Hospital Course: Patient was admitted to telemetry for CVA. Head ct showed acute large left MCA territory infarction. Patient was not a candidate for tPA or endovascular intervention per Dr. Vallejo (neuro consult). NG tube was placed and patient started on tube feeds. MRI brain showed edema and midline shift. CTA chest showed PE. Patient was made DNR/DNI on 01/18/17. Patient was transition to hospice care in hospital on 01/19/17. Please note this is a summary of events. For more detail please see complete medical record. Discharge Exam - Head Exam Head Exam: ATRAUMATIC, NORMAL INSPECTION, NORMOCEPHALIC - Additional Findings Additional findings: - Constitutional Appears: Older Than Stated Age, Cachectic, Chronically Ill - Head Exam Head Exam: ATRAUMATIC, NORMAL INSPECTION, NORMOCEPHALIC - Eye Exam Additional comments: Right pupil fixed constricted Left pupil fixed dilated - Respiratory Exam Additional comments: on BiPAP - Cardiovascular Exam Cardiovascular Exam: RRR, +S1, +S2 - GI/Abdominal Exam GI & Abdominal Exam: Soft, Normal Bowel Sounds - Extremities Exam Extremities Exam: absent: Pedal Edema - Neurological Exam Additional comments: Does not respond to commands or noxious stimuli but has occasional spontaneous UE movements Decerebrate posturing GCS: 3 - Skin Skin Exam: Dry, Intact, Normal Color, Warm Discharge Plan - Follow Up Plan Condition: SERIOUS Disposition: HOSPICE - MEDICAL FACILITY <Lenin Olguin - Last Filed: 01/21/17 09:38> Provider - Provider Date of Admission: 01/16/17 12:34 Attending physician: Lenin Olguin DO Hospital Course - Lab Results Lab Results: Micro Results 01/16/17 13:30 Blood Blood Culture - Preliminary NO GROWTH AFTER 4 DAYS 01/16/17 12:30 Blood Blood Culture - Preliminary NO GROWTH AFTER 4 DAYS 01/16/17 11:47 Urine,Avilez Urine Culture - Final No Growth (<1,000 CFU/ML) Most Recent Lab Values WBC 17.5 K/uL (4.8-10.8) H 01/19/17 07:18 RBC 2.98 Mil/uL (4.40-5.90) L 01/19/17 07:18 Hgb 8.4 g/dL (12.0-18.0) L 01/19/17 07:18 Hct 26.3 % (35.0-51.0) L 01/19/17 07:18 MCV 88.0 fL (80.0-94.0) 01/19/17 07:18 MCH 28.0 pg (27.0-31.0) 01/19/17 07:18 MCHC 31.9 g/dL (33.0-37.0) L 01/19/17 07:18 RDW 18.2 % (11.5-14.5) H 01/19/17 07:18 Plt Count 199 K/uL (130-400) 01/19/17 07:18 MPV 8.2 fL (7.2-11.7) 01/19/17 07:18 Neut % (Auto) 97.7 % (50.0-75.0) H 01/19/17 07:18 Lymph % (Auto) 1.1 % (20.0-40.0) L 01/19/17 07:18 [place] % (Auto) 1.1 % (0.0-10.0) 01/19/17 07:18 Eos % (Auto) 0.0 % (0.0-4.0) 01/19/17 07:18 Baso % (Auto) 0.1 % (0.0-2.0) 01/19/17 07:18 Neut # 17.1 K/uL (1.8-7.0) H 01/19/17 07:18 Lymph # 0.2 K/uL (1.0-4.3) L 01/19/17 07:18 [place] # 0.2 K/uL (0.0-0.8) 01/19/17 07:18 Eos # 0.0 K/uL (0.0-0.7) 01/19/17 07:18 Baso # 0.0 K/uL (0.0-0.2) 01/19/17 07:18 Neutrophils % (Manual) 94 % (50-75) H 01/19/17 07:18 Band Neutrophils % 2 % (0-2) 01/19/17 07:18 Lymphocytes % (Manual) 3 % (20-40) L 01/19/17 07:18 Monocytes % (Manual) 1 % (0-10) 01/19/17 07:18 Myelocytes % 2 % (0-0) H 01/16/17 11:21 Platelet Estimate Normal (NORMAL) 01/19/17 07:18 Polychromasia Slight 01/19/17 07:18 Hypochromasia (manual) Slight 01/19/17 07:18 Anisocytosis (manual) Slight 01/19/17 07:18 Target Cells Slight 01/19/17 07:18 ESR 138 mm/hr (0-15) H 01/17/17 16:50 PT 25.8 SECONDS (9.7-12.2) H 01/16/17 11:21 INR 2.2 01/16/17 11:21 APTT 29 SECONDS (21-34) 01/16/17 11:21 Puncture Site Rr 01/18/17 12:22 pCO2 34 mm/Hg (35-45) L 01/18/17 12:22 pO2 118 mm/Hg (80-100) H 01/18/17 12:22 HCO3 27.8 mmol/L (21-28) 01/18/17 12:22 ABG pH 7.50 (7.35-7.45) H 01/18/17 12:22 ABG Total CO2 27.5 mmol/L (22-28) 01/18/17 12:22 ABG O2 Saturation 99.8 % (95-98) H 01/18/17 12:22 ABG Base Excess 3.6 mmol/L (-2.0-3.0) H 01/18/17 12:22 Ankit Test Unable 01/18/17 12:22 ABG Potassium 3.2 mmol/L (3.6-5.2) L 01/18/17 12:22 VBG pH 7.33 (7.32-7.43) 01/16/17 12:40 VBG pCO2 53 mmHg (40-60) 01/16/17 12:40 VBG HCO3 24.0 mmol/L 01/16/17 12:40 VBG Total CO2 29.5 mmol/L (22-28) H 01/16/17 12:40 VBG O2 Sat (Calc) 36.1 % (40-65) L 01/16/17 12:40 VBG Base Excess 1.0 mmol/L (0.0-2.0) 01/16/17 12:40 VBG Potassium 4.7 mmol/L (3.6-5.2) 01/16/17 12:40 A-a O2 Difference 125.0 mm/Hg 01/18/17 12:22 Respiratory Index 1.1 01/18/17 12:22 Sodium 139.0 mmol/l (132-148) 01/18/17 12:22 Chloride 107.0 mmol/L (98-107) 01/18/17 12:22 Glucose 138 mg/dl (75-110) H 01/18/17 12:22 Lactate 1.2 mmol/L (0.7-2.1) 01/18/17 12:22 Liter Flow 8.0 01/18/17 12:22 FiO2 40.0 % 01/18/17 12:22 Sodium 136 mmol/L (132-148) 01/19/17 07:18 Potassium 3.6 mmol/L (3.6-5.2) 01/19/17 07:18 Chloride 102 mmol/L (98-107) 01/19/17 07:18 Carbon Dioxide 24 mmol/L (22-30) 01/19/17 07:18 Anion Gap 15 (10-20) 01/19/17 07:18 BUN 27 mg/dL (9-20) H 01/19/17 07:18 Creatinine 1.1 mg/dL (0.8-1.5) 01/19/17 07:18 Est GFR ( Amer) > 60 01/19/17 07:18 Est GFR (Non-Af Amer) > 60 01/19/17 07:18 POC Glucose (mg/dL) 136 mg/dL (65-110) H 01/17/17 16:32 Random Glucose 151 mg/dL (75-110) H 01/19/17 07:18 Hemoglobin A1c 6.1 % (4.2-6.5) 01/16/17 11:21 Calcium 8.6 mg/dl (8.6-10.4) 01/19/17 07:18 Phosphorus 3.4 mg/dL (2.5-4.5) 01/19/17 07:18 Magnesium 1.9 mg/dL (1.6-2.3) 01/19/17 07:18 Total Bilirubin 1.0 mg/dL (0.2-1.3) 01/19/17 07:18 GGT 181 U/L (8-78) H 01/16/17 16:50 AST 31 U/L (17-59) 01/19/17 07:18 ALT 47 U/L (21-72) 01/19/17 07:18 Alkaline Phosphatase 158 U/L (38-126) H 01/19/17 07:18 Total Creatine Kinase < 20 U/L (55-170) L 01/16/17 11:21 CK-MB (Mass) 0.30 ng/mL (0.0-3.38) 01/16/17 11:21 Troponin I, Quant 0.0630 ng/mL (0.00-0.120) 01/16/17 11:21 C-React Prot High Sens > 15.00 mg/L (1.00-3.00) H 01/17/17 16:50 Total Protein 6.1 g/dL (6.3-8.3) L 01/19/17 07:18 Albumin 2.9 g/dL (3.5-5.0) L 01/19/17 07:18 Globulin 3.2 gm/dL (2.2-3.9) 01/19/17 07:18 Albumin/Globulin Ratio 0.9 (1.0-2.1) L 01/19/17 07:18 Triglycerides 85 mg/dL (0-149) 01/16/17 11:21 Cholesterol 102 mg/dL (0-199) 01/16/17 11:21 LDL Cholesterol Direct 63 mg/dL (0-129) 01/16/17 11:21 HDL Cholesterol 23 mg/dL (30-70) L 01/16/17 11:21 Vitamin B6 < 2.0 ng/mL (2.1-21.7) L 01/17/17 16:50 Vitamin B12 > 1000 pg/mL (239-931) H 01/17/17 16:50 25-OH Vitamin D Total 26.7 NG/ML (30.0-100.0) L 01/17/17 16:50 Arterial Blood Potassium 3.2 mmol/L (3.6-5.2) L 01/18/17 12:22 Venous Blood Potassium 4.7 mmol/L (3.6-5.2) 01/16/17 12:40 Urine Color Yellow (YELLOW) 01/16/17 11:58 Urine Clarity Clear (Clear) 01/16/17 11:58 Urine pH 7.0 (5.0-8.0) 01/16/17 11:58 Ur Specific [place] 1.011 (1.003-1.030) 01/16/17 11:58 Urine Protein Negative mg/dL (NEGATIVE) 01/16/17 11:58 Urine Glucose (UA) Normal mg/dL (Normal) 01/16/17 11:58 Urine Ketones Negative mg/dL (NEGATIVE) 01/16/17 11:58 Urine Blood 1+ (NEGATIVE) H 01/16/17 11:58 Urine Nitrate Negative (NEGATIVE) 01/16/17 11:58 Urine Bilirubin Negative (NEGATIVE) 01/16/17 11:58 Urine Urobilinogen Normal mg/dL (0.2-1.0) 01/16/17 11:58 Ur Leukocyte Esterase Neg Tika/uL (Negative) 01/16/17 11:58 Urine WBC (Auto) 4 /hpf (0-5) 01/16/17 11:58 Urine RBC (Auto) 22 /hpf (0-3) H 01/16/17 11:58 ROSSY 6 Profile Negative (NEGATIVE) 01/17/17 16:50 Blood Type A POSITIVE 01/17/17 08:14 Blood Type Confirm A POSITIVE 01/16/17 11:21 Antibody Screen Negative 01/17/17 08:14 Attending/Attestation - Attestation I have personally seen and examined this patient.: Yes I have fully participated in the care of the patient.: Yes I have reviewed all pertinent clinical information, including history, physical exam and plan: Yes Notes (Text): Medical Attending: I agree with the above note by the resident. The patient that morning and the resident created the [place] EDRS and I signed it in the morning thank you Lenin Olguin
== END 2017-01-19 15:23 | DRG 64 ==
LOC: C.ER 10:36 → C.9E 12:34 → C.6T 13:15
PROVIDERS: ADMIT Internal Medicine; ATTEND Hospitalist
PROC: 5A09457 Assistance with Respiratory Ventilation, 24-96 Consecutive Hours, Continuous Positive Airway Pressure (ICD-10-PCS; principal; 2017-01-17)
DX: I63.512 Cerebral infarction due to unspecified occlusion or stenosis of left middle cerebral artery (principal); J18.9 Pneumonia, unspecified organism; I26.99 Other pulmonary embolism without acute cor pulmonale; J91.8 Pleural effusion in other conditions classified elsewhere; C78.00 Secondary malignant neoplasm of unspecified lung; C79.51 Secondary malignant neoplasm of bone; C80.1 Malignant (primary) neoplasm, unspecified; D64.9 Anemia, unspecified; J98.11 Atelectasis; Z87.891 Personal history of nicotine dependence; I12.9 Hypertensive chronic kidney disease with stage 1 through stage 4 chronic kidney disease, or unspecified chronic kidney disease; N18.9 Chronic kidney disease, unspecified; N40.1 Benign prostatic hyperplasia with lower urinary tract symptoms; R31.9 Hematuria, unspecified; Z85.528 Personal history of other malignant neoplasm of kidney; G47.30 Sleep apnea, unspecified; Z66 Do not resuscitate

== ENCOUNTER 2017-01-19 14:44 | Inpatient (IN) | payer OTHER ==
[2017-01-19] MEDS ORDERED: Vitamins A & D Oint UD Foilpak TOP PRN (19:17)
[2017-01-20 01:24] VITALS: BP 142/62; PULSE 60; RESP 20; TEMP 99.3; O2SAT 94
--- NOTE | 2017-01-20 05:32 | CP.PCM.PRO ---
Pronouncement of Note - Clinical Findings Physical Exam: No Response Verbal/Painful Stimuli, Absent Peripheral Pulses{ Carotid & Femoral}, Absent Heart & Breath Sounds, No Pupillary Light Reflex, No Corneal Reflex, Pupils Fixed & Dilated, Absence of Vital Signs - Pronouncement Time Time of Pronouncement of : 05:21 - Notifications Pronouncement Notifications: Family Notified (next of kin notified by this resident), Atending Notified Certified Anesthesiologist Assistant Notified: No - Autopsy Autopsy Requested: No [place]: [id number]
== END 2017-01-20 11:03 | DRG 951 ==
LOC: C.6T 14:44
PROVIDERS: ADMIT Hospitalist; ATTEND Hospitalist
DX: Z51.5 Encounter for palliative care (principal); G93.6 Cerebral edema; I26.99 Other pulmonary embolism without acute cor pulmonale; I63.512 Cerebral infarction due to unspecified occlusion or stenosis of left middle cerebral artery; C78.00 Secondary malignant neoplasm of unspecified lung; J18.9 Pneumonia, unspecified organism; C79.51 Secondary malignant neoplasm of bone; C80.1 Malignant (primary) neoplasm, unspecified; Z66 Do not resuscitate